=== PATIENT | male | born 1970 | race Caucasian/White ===

== ENCOUNTER 2017-12-24 17:07 | Inpatient (IN) | payer BC, OTHER ==
[~2017-12-24] VITALS: Ht 167.6 cm; Wt 59.0 kg
[2017-12-24] MEDS ORDERED: MIRALAX 17 GM POWD.PACK PO PRN (20:00)
[2017-12-24] MEDS ORDERED: ONDANSETRON 4 MG/2 ML VIAL IM PRN (20:00)
[2017-12-24] MEDS ORDERED: MAGNESIUM HYDROXIDE 30 ML LIQUID UDC PO PRN (20:00)
[2017-12-24] MEDS ORDERED: LOPERAMIDE HCL 2 MG CAPSULE PO PRN ×2 (20:00)
[2017-12-24] MEDS ORDERED: MAG HYDROX/AL HYDROX/SIMETH 30 ML LIQUID UDC PO PRN (20:00)
[2017-12-24] MEDS ORDERED: DICYCLOMINE HCL 20 MG TABLET PO PRN (20:00)
[2017-12-24] MEDS ORDERED: LORAZEPAM 1 MG TABLET PO PRN (20:00)
[2017-12-24 20:30] VITALS: BP 138/98
--- NOTE | 2017-12-24 20:30 | NUR ---
Pre-Assessment 2030 Patient was seen in intake office. Patient is noted to be cooperative with intake process but tremulous, avoids eye contact, slurred speech possibly due to intoxication, easily irritable, and anxious. Patient verbalizes history of seizures due to Alcohol withdrawal with last one noted to be 2 weeks ago. Vital signs rendered and noted as 98.4, 138/98, 99, 99%, 20, 0/10. Patient noted with home medication of Remeron. No Narcotic medications noted with patient. All questions answered. Admission assessment to continue on unit.
[2017-12-24] MEDS ORDERED: THIAMINE HCL 200 MG/2 ML VIAL IM ONE (21:00)
--- NOTE | 2017-12-24 21:00 | NUR ---
Admission Patient is a 47 year old male originally arriving from [facility], admitted to [facility] to receive medical treatment for his ETOH Dependence. Patient was escorted on to unit by male ELECTRIC BLANKET PACKER where body check was rendered. Skin check rendered by CN with skin noted intact. Patient is able to provide Urine drug screen upon arrival to unit. Patient is noted to be ambulatory with no assistance needed. Patient is alert and oriented, verbalizes No Known Allergies, Height noted as 5'6, and weight noted as 130lbs. Patient continues to be visibly anxious, restless, tremulous, avoids eye contact, slurred speech, and irritable. Vital signs rendered and noted to be 136/100, 96, 20, 98.4, 99%, 5/10. Patient verbalizes pain to abdomen and describes it as "it feels empty like I'm hungry but maybe im just nervous." Breathing is even and non labored with no signs of SOB. BUE and BLE noted to be WNL with no edema noted. Lung sounds clear with no cough noted. Patient verbalized past medical history of anxiety, depression, insomnia, Bipolar, and History of seizures, Patients home medication noted as Remeron 30mg QHS. Patient states "I take it because the tells me to take it. It doesnt make me sleepy. I actually dont feel anything. But I take it." Patient also explains "I dont like taking Benadryl for sleep because it does the opposite for me, so do Antihistamines. It makes me hyper. I will not take Trazodone or Seroquel. This is why I drink and smoke weed because it helps me sleep. Otherwise I have difficult times sleeping." Patient denies any suicidal ideations. He describes his usage as: 1. ETOH-Vodka, for the past year, drinking 2 pints daily, Last drink noted 12/24/17 at approx 1600 drinking 1 pint. 2. Klonopin (prescribed), for the past 5 years, 2 mg daily PO, 1mg in Am and 1mg HS, last dose 2 weeks ago due to patient unable to fill prescription. 3. Marijuana, patient reports of smoking Marijuana daily due to inability of sleeping. Unable to recall amounts and states "money is short right now so I get it when I can" Patient verbalizes signs and symptoms of withdrawal as "I get seizures, anxiety, nausea, vomiting. I just dont feel well." Patient explained he has been admitted to multiple treatment facilities due to his Alcohol dependence. His last noted admission was approx 1 year ago to a facility in [place] but patient is unable to recall the name of the facility. 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 Admission CIWA noted to be 17. All information reviewed with Dr. Turner. Labs to be rendered. PRN medications available for increased signs and symptoms. Will continue plan of care as ordered.
[2017-12-24 21:01] VITALS: BP 136/100
[2017-12-24 21:19] LABS: *AMPHETAMINE, URINE NEGATIVE (NEGATIVE); *BARBITURATE, URINE NEGATIVE (NEGATIVE); *CANNABINOID, URINE POSITIVE (NEGATIVE); *COCCAINE, URINE NEGATIVE (NEGATIVE); *OPIATE, URINE NEGATIVE (NEGATIVE); *PHENCYCLIDINE SCREEN,URINE NEGATIVE (NEGATIVE)
[2017-12-24] MEDS: LORAZEPAM 1 MG TABLET PO PRN (21:28)
--- NOTE | 2017-12-24 21:30 | NUR ---
PRN Medication Administration Patient is noted with increased agitation, anxiety, tremulous, and light sensitivity. Patient is also noted with elevated blood pressure of 138/100. PRN Clonidine and PRN Ativan 2mg administered as per orders. Will continue to monitor.
[2017-12-24] MEDS: CLONIDINE HCL 0.1 MG TABLET PO PRN (21:35)
[2017-12-24] MEDS ORDERED: MIRT30TA PO (21:58)
--- NOTE | 2017-12-24 22:30 | NUR ---
PRN medication Reassessment Patient is noted in his room, awake, alert and oriented. Patient is able to make needs known. Breathing even and non labored. Patient is able to verbalize "Im feeling better but still nervous." MD on unit to examine and evaluate patient with an addition dose of Ativan 2mg to be given. Will continue to monitor.
[2017-12-24] MEDS ORDERED: LORAZEPAM 1 MG TABLET ONE (22:48)
[2017-12-24 22:52] LABS: BASOPHILS % (AUTO) 1.2 % (0.0-2.0); HEMATOCRIT 40.4 % (36.7-47.1); HEMOGLOBIN 14.1 g/dL (12.5-16.3); LYMPHOCYTES # (AUTO) 1.2 K/uL (20.0-40.0); LYMPHOCYTES % (AUTO) 35.9 % (20.5-51.5); MEAN CORPUSCULAR HEMOGLOBIN 34.6 uug (23.8-33.4); MEAN CORPUSCULAR HGB CONC 35 g/dL (32.5-36.3); MEAN CORPUSCULAR VOLUME 98.9 fL (73.0-96.2); MONOCYTES # (AUTO) 0.2 K/uL (2.0-10.0); MONOCYTES % (AUTO) 5.1 % (0.0-11.0); NEUTROPHILS # (AUTO) 1.9 K/uL (1.8-8.9); NEUTROPHILS % (AUTO) 57.8 % (38.5-71.5); PLATELET COUNT (AUTO) 151 K/uL (152-348); RED BLOOD CELL COUNT(AUTO) 4.09 MIL/uL (4.06-5.63); WHITE BLOOD COUNT (AUTO) 3.3 K/uL (3.6-10.2)
[2017-12-24] MEDS ORDERED: LORAZEPAM 1 MG TABLET PO SCH (23:00)
[2017-12-24 23:05] LABS: BILIRUBIN,TOTAL 0.8 mg/dL (0.2-1.0); CREATININE 1.1 mg/dL (0.6-1.3); MAGNESIUM 1.7 mg/dL (1.8-2.4); POTASSIUM 3.3 mmol/L (3.5-5.1); TOTAL PROTEIN, SERUM 7.6 g/dL (6.4-8.2)
[2017-12-24 23:09] VITALS: BP 136/98
[2017-12-24] MEDS ORDERED: MAGNESIUM OXIDE 400 MG TABLET PO ONE (23:15)
[2017-12-24] MEDS ORDERED: POTASSIUM CHLORIDE 20 MEQ TAB.PRT.SR PO ONE (23:15)
--- NOTE | 2017-12-24 23:20 | NUR ---
MD Communication/Labs Results Patients lab resulted and relayed to MD with new orders for Potassium 40meq x1 dose now and Mag ox 400mg x1 dose now. Orders noted and carried out by CN. Potassium and Mag Ox administered with addition dose of Ativan 2mg as ordered. Will continue to monitor.
[2017-12-24] MEDS ORDERED: POTASSIUM CHLORIDE 20 MEQ TAB.PRT.SR ONE (23:32)
[2017-12-24] MEDS ORDERED: MAGNESIUM OXIDE 400 MG TABLET ONE (23:33)
[2017-12-25 00:43] VITALS: BP 118/87
[2017-12-25 04:00] VITALS: BP 98/57
--- NOTE | 2017-12-25 07:07 | NUR ---
End of Shift Patient is noted in bed sleeping. Breathing even and non labored. No signs of pain or discomfort noted. No restlessness noted. Patient is set to start a modified Ativan taper for his ETOH Dependence. Patient received PRN Ativan 2mg for elevated CIWA, PRN clonidine for elevated blood pressure, as well as an additional one time dose of Ativan 2mg after being evaluated by MD. All medications noted to be effective. Last noted CIWA 7. Patient received supplements for abnormal Potassium lab value and abnormal Magnesium lab value with Kdur 40meq x1 dose and Mag Ox 400mg x1 dose. Patient slept a total of 6 hours. All needs attended to promptly. Will endorse to continue plan of care as ordered.
--- NOTE | 2017-12-25 07:30 | NUR ---
START OF SHIFT Pt 47 y/o male admitted for etoh dependence. Pt received in room on bed awake. Pt alert and oriented to name, place, and time. Perrla. Skin warm and moist to touch. Respirations even and unlabored. Bilateral hand tremors noted. Pt appears anxious this morning. It was reported that pt slept for 6 hours last night. Bed on lowest position with side rails x2 up for safety. Call light within reach. No distress noted at this time.
[2017-12-25 08:00] VITALS: BP 110/79
[2017-12-25] MEDS: LORAZEPAM 1 MG TABLET PO SCH ×4 (08:20→21:09)
[2017-12-25] MEDS: THIAMINE HCL 100 MG TABLET PO SCH (08:20)
[2017-12-25] MEDS: MULTIVITAMINS,THERAPEUTIC TABLET PO SCH (08:20)
[2017-12-25] MEDS: FOLIC ACID 1 MG TABLET PO SCH (08:20)
[2017-12-25] MEDS ORDERED: TUBERCULIN,PURIF.PROT.DERIV. 5 TU/0.1 ML TEST ID ONE (09:00)
[2017-12-25] MEDS: LORAZEPAM 1 MG TABLET PO PRN ×2 (11:09→23:41)
[2017-12-25] MEDS: ONDANSETRON ODT 4 MG TAB.RAPDIS SL PRN (11:11)
--- NOTE | 2017-12-25 11:16 | NUR ---
PRN pt with 1 episode of reported loose stool. Immodium 1st dose po prn per MD order given and tolerated well.
--- NOTE | 2017-12-25 11:18 | NUR ---
PRN pt with ciwa=9. Bilateral hand tremors noted. Ativan po prn per MD order given and tolerated well.
--- NOTE | 2017-12-25 11:18 | NUR ---
PRN Pt states feels nauseated. Zofran odt prn per MD order given and tolerated well.
--- NOTE | 2017-12-25 12:16 | NUR ---
PRN EVAL pt with no reports of loose stool at this time.
[2017-12-25 12:17] VITALS: BP 112/86
--- NOTE | 2017-12-25 12:18 | NUR ---
PRN EVAL Pt with no reports of nausea/ vomit at this time.
--- NOTE | 2017-12-25 12:18 | NUR ---
PRN EVAL Pt with ciwa=5.
[2017-12-25] MEDS ORDERED: PANTOPRAZOLE SODIUM 40 MG TABLET.DR PO SCH (13:00)
[2017-12-25] MEDS ORDERED: MAGNESIUM OXIDE 400 MG TABLET PO ONE (15:00)
[2017-12-25 16:00] VITALS: BP 107/73
--- NOTE | 2017-12-25 18:25 | NUR ---
END OF SHIFT Pt 47 y/o female admitted for etoh dependence. Pt alert and oriented to name, place, and time. Perrla. Skin warm and slightly moist to touch. Respirations even and unlabored. Bilateral hand tremors noted. Pt with periods of anxiety throughout the day. Pt observed mostly isolative to room throughout the day. Pt was seen by MD today. Pt medication compliant a tolerated well. No ASE noted. Bed on lowest position with side rails x2 up for safety. Call light within reach. No distress noted at this time.
--- NOTE | 2017-12-25 19:15 | NUR ---
START OF SHIFT Received 47 year old male patient admitted on 12/24/17 for ETOH (vodka), Klonopin and Marijuana dependency. Pt is full code with NKA. He reports a PMHx of anxiety, depression, bipolar, insomnia and history of seizure 2 weeks ago. He reports drinking vodka 2-3 pints daily for 1 year. Last dose was 1 pint on 12/24/17. Klonopin 2 mg daily for 5 years. Last dose was 2 weeks ago, and intermittent use of Marijuana. Pt placed on 5 day Ativan taper and tolerating well. Per endorsement, pt received one time Ativan 1 mg. Pt is alert and oriented x4, breathing is even and unlabored. Safety measures in place. Will continue to monitor.
[2017-12-25 20:00] VITALS: BP 130/82
[2017-12-25] MEDS: MIRTAZAPINE 15 MG TABLET PO SCH (21:08)
[2017-12-25] MEDS: ACETAMINOPHEN 325 MG TABLET PO PRN (21:08)
--- NOTE | 2017-12-25 21:08 | NUR ---
PRN TYLENOL Pt complains of headache 5/10. PRN Tylenol administered as ordered. Will monitor effectiveness.
[2017-12-25] MEDS: diphenhydrAMINE 50 MG CAPSULE PO PRN (23:40)
[2017-12-25] MEDS: CLONIDINE HCL 0.1 MG TABLET PO PRN (23:40)
--- NOTE | 2017-12-25 23:40 | NUR ---
PRN ATIVAN, BENADRYL, CLONIDINE Pt complains of anxiety, agitation, and insomnia. Pt also noted with increased BP 143/90, HR: 105. CIWA:7. PRN Ativan, Benadryl and Clonidine administered as ordered. Safety measures in place. Will monitor effectiveness.
[2017-12-26] VITALS: BP 143/90
[2017-12-26 00:40] VITALS: BP 138/82
--- NOTE | 2017-12-26 00:40 | NUR ---
PRN REASSESSMENT PRN medications effective. Pt lying in bed with eyes closed noted to be asleep. Breathing even and unlabored, respirations 16. BP: 138/82. Will continue to monitor.
--- NOTE | 2017-12-26 04:00 | NUR ---
VITALS REFUSED, CIWA DEFERRED 0400 vitals refused. CIWA deferred d/t pt lying in bed with eyes closed noted to be asleep. Breathing even and unlabored. Safety measures in place. Will continue to monitor.
[2017-12-26] MEDS: PANTOPRAZOLE SODIUM 40 MG TABLET.DR PO SCH (06:56)
--- NOTE | 2017-12-26 07:10 | NUR ---
END OF SHIFT Pt is a 47 year old male patient admitted on 12/24/17 for ETOH (vodka), Klonopin and Marijuana dependency. Pt is full code with NKA. Pt continues on a 5 day Ativan taper and tolerating well. He received PRN Tylenol, Ativan, Benadryl and Clonidine. He slept a total of 7 hrs, Intake: 2,315, Void: x7, BM:0, CIWA:7. Pt remains alert and oriented x4, breathing is even and unlabored. Safety measures in place. Endorsed to AM shift.
--- NOTE | 2017-12-26 07:30 | NUR ---
START OF SHIFT Pt 47 y/o male admitted for etoh dependence. Pt received in room on bed awake. Pt alert and oriented to name, place, and time. Perrla. Skin warm and moist to touch. Respirations even and unlabored. Bilateral hand tremors noted. It was reported that pt slept for 7 hours last night. Bed on lowest position with side rails x2 up for safety. Call light within reach. No distress noted at this time.
[2017-12-26 08:00] VITALS: BP 113/85
[2017-12-26] MEDS: MULTIVITAMINS,THERAPEUTIC TABLET PO SCH (08:37)
[2017-12-26] MEDS: LORAZEPAM 1 MG TABLET PO SCH ×3 (08:37→21:27)
[2017-12-26] MEDS: FOLIC ACID 1 MG TABLET PO SCH (08:37)
[2017-12-26] MEDS: THIAMINE HCL 100 MG TABLET PO SCH (08:37)
[2017-12-26 09:20] LABS: EOSINOPHILS % (AUTO) 0.8 % (0.0-7.0); HEMATOCRIT 39.5 % (36.7-47.1); HEMOGLOBIN 13.6 g/dL (12.5-16.3); LYMPHOCYTES # (AUTO) 1.4 K/uL (20.0-40.0); MEAN CORPUSCULAR HEMOGLOBIN 34.5 uug (23.8-33.4); MEAN CORPUSCULAR HGB CONC 34 g/dL (32.5-36.3); MEAN CORPUSCULAR VOLUME 100.1 fL (73.0-96.2); MONOCYTES # (AUTO) 0.3 K/uL (2.0-10.0); MONOCYTES % (AUTO) 9.8 % (0.0-11.0); NEUTROPHILS # (AUTO) 1.3 K/uL (1.8-8.9); NEUTROPHILS % (AUTO) 42.4 % (38.5-71.5); PLATELET COUNT (AUTO) 119 K/uL (152-348); RED BLOOD CELL COUNT(AUTO) 3.94 MIL/uL (4.06-5.63)
[2017-12-26 09:42] LABS: BILIRUBIN,DIRECT 0.3 mg/dL (0.0-0.2); BILIRUBIN,TOTAL 1.2 mg/dL (0.2-1.0); CREATININE 1.1 mg/dL (0.6-1.3); MAGNESIUM 1.8 mg/dL (1.8-2.4); PHOSPHOROUS 3.9 mg/dL (2.5-4.9); POTASSIUM 3.5 mmol/L (3.5-5.1); TOTAL PROTEIN, SERUM 7.1 g/dL (6.4-8.2)
[2017-12-26 11:07] LABS: HEPATITIS B SURFACE AG Negative (Negative)
[2017-12-26 12:00] VITALS: BP 113/85
[2017-12-26] MEDS: BACLOFEN 20 MG TABLET PO PRN (14:04)
--- NOTE | 2017-12-26 14:05 | NUR ---
PRN Pt states has muscle aches of bilateral feet. Baclofen po prn per MD order given and tolerated well.
--- NOTE | 2017-12-26 15:05 | NUR ---
PRN EVAL Pt states body aches 02/08
[2017-12-26 16:00] VITALS: BP 129/88
--- NOTE | 2017-12-26 18:34 | NUR ---
END OF SHIFT Pt 47 y/o female admitted for etoh dependence. Pt alert and oriented to name, place, and time. Perrla. Skin warm and slightly moist to touch. Respirations even and unlabored. Bilateral hand tremors noted slightly. Pt with some periods of anxiety this morning. Pt observed mostly isolative to room throughout the day. Pt was seen by MD today. Pt medication compliant a tolerated well. No ASE noted. Bed on lowest position with side rails x2 up for safety. Call light within reach. No distress noted at this time.
--- NOTE | 2017-12-26 19:15 | NUR ---
START OF SHIFT Received 47 year old male patient admitted on 12/24/17 for ETOH (vodka), Klonopin and Marijuana dependency. Pt is full code with NKA. He reports a PMHx of anxiety, depression, bipolar, insomnia and history of seizure 2 weeks ago. He reports drinking vodka 2-3 pints daily for 1 year. Last dose was 1 pint on 12/24/17. Klonopin 2 mg daily for 5 years. Last dose was 2 weeks ago, and intermittent use of Marijuana. Pt is receiving a 5 day Ativan taper and tolerating well. Per endorsement, pt received PRN Baclofen. Pt is alert and oriented x4, breathing is even and unlabored. Safety measures in place. Will continue to monitor.
[2017-12-26 20:00] VITALS: BP 114/85
[2017-12-26] MEDS: MIRTAZAPINE 15 MG TABLET PO SCH (21:26)
[2017-12-26] MEDS: CLONIDINE HCL 0.1 MG TABLET PO SCH (21:28)
[2017-12-27] VITALS: BP 108/70
[2017-12-27] MEDS: BACLOFEN 20 MG TABLET PO PRN (02:39)
[2017-12-27] MEDS: diphenhydrAMINE 50 MG CAPSULE PO PRN (02:39)
--- NOTE | 2017-12-27 02:39 | NUR ---
PRN BENADRYL/BACLOFEN Pt complains of muscle spasms and insomnia. PRN Benadryl and Baclofen administered as ordered. Safety measures in place. Will continue to monitor effectiveness.
--- NOTE | 2017-12-27 03:39 | NUR ---
PRN REASSESSMENT PRN medications effective. Pt lying in bed with eyes closed noted to be asleep. Breathing even and unlabored. Safety measures in place. Will continue to monitor.
[2017-12-27] MEDS: PANTOPRAZOLE SODIUM 40 MG TABLET.DR PO SCH (06:55)
--- NOTE | 2017-12-27 07:15 | NUR ---
END OF SHIFT Pt is in bed awake, alert and oriented x4. Pt continues on a 5 day Ativan taper and tolerating well. He received PRN Baclofen and Benadryl d/t complaints of insomnia and muscle spasms. Pt was restless throughout the night. He slept a total of 4 hrs, Intake: 1000mL, Void: x2, BM:0, CIWA:5. Safety measures in place. Endorsed to AM shift.
--- NOTE | 2017-12-27 07:16 | NUR ---
Start of Shift Advertising Supervisor received report on 47 year old male admitted to [facility] on 12/24/17 for ETOH and Benzodiazepine detoxification. Pt reports NKDA, full code and regular diet. PMH of anxiety, depression, Bipolar and insomnia. Pt endorses seizure history with last seizure 2 weeks ago. Pt was provided Bentyl and Baclofen PRN on NOC. Pt currently on a Ativan taper and tolerating well. Last CIWA 5 recorded by NOC. Advertising Supervisor encounters pt in hallway. Pt is A/O x4 and makes his needs known. Calm, cooperative, bright and pleasant. Full range of emotions. Bed in low position, wheels locked and side rails up x2. Will continue to monitor, support and encourage according to plan of care.
[2017-12-27 08:15] VITALS: BP 111/81
[2017-12-27] MEDS: LORAZEPAM 1 MG TABLET PO SCH ×2 (09:28→12:44)
[2017-12-27] MEDS: MULTIVITAMINS,THERAPEUTIC TABLET PO SCH (09:29)
[2017-12-27] MEDS: CLONIDINE HCL 0.1 MG TABLET PO SCH ×2 (09:29→21:52)
[2017-12-27] MEDS: THIAMINE HCL 100 MG TABLET PO SCH (09:29)
[2017-12-27] MEDS: FOLIC ACID 1 MG TABLET PO SCH (09:29)
[2017-12-27 12:18] VITALS: BP 126/84
[2017-12-27 16:45] VITALS: BP 118/85
[2017-12-27] MEDS ORDERED: LORAZEPAM 1 MG TABLET PO SCH ×2 (17:00→21:00)
[2017-12-27] MEDS: ACETAMINOPHEN 325 MG TABLET PO PRN (17:05)
--- NOTE | 2017-12-27 17:05 | NUR ---
PRN Tylenol Pt complain of headache 5/10, pt endorses having drank plenty of water. Calcine Furnace Loader administered medication per order with pt tolerating well. Will continue to monitor, support and encourage according to plan of care.
--- NOTE | 2017-12-27 18:05 | NUR ---
PRN Re-Assessment Pt states the medication was effective and he feels better. Will continue to monitor, support and encourage according to plan of care.
--- NOTE | 2017-12-27 18:56 | NUR ---
End of Shift Water Pump Assembler provided report on 47 year old male admitted to [facility] on 12/24/17 for ETOH and Benzodiazepine detoxification. Pt reports NKDA, full code and regular diet. PMH of anxiety, depression, Bipolar and insomnia. Pt endorses seizure history with last seizure 2 weeks ago. Pt was administered Tylenol at 1700 for headache 5/10, pt reported the medication was effective. Pt currently on a Ativan taper and tolerating well. Last CIWA 5 recorded at 1600. Pt has been isolative and withdrawn to room and self, although polite and pleasant with staff. Flat affect with a congruent mood. Calm and cooperative, makes needs known. Bed in low position, wheels locked and side rails up x2. Will continue to monitor, support and encourage according to plan of care.
--- NOTE | 2017-12-27 19:10 | NUR ---
Start of Shift Patient Received. Patient is in activities room participating in a group meeting. Patient continues on a modified Ativan taper. Per endorsement, Patient was given PRN Tylenol for headache with medication noted to be effective. Last noted CIWA 5. Patient is compliant with participating in group and social activities. All needs attended to promptly. Will continue plan of care as ordered.
[2017-12-27 20:20] VITALS: BP 114/79
[2017-12-27] MEDS: MIRTAZAPINE 15 MG TABLET PO SCH (21:52)
--- NOTE | 2017-12-28 | NUR ---
VITALS REFUSED, CIWA DEFERRED Patient refused midnight vital signs. CIWA deferred due to patient asleep. Respirations are even and unlabored, 16/min. Safety measures in place, bed locked in low position, side rails up x2, call light within reach. Will continue to monitor.
[2017-12-28 00:30] VITALS: BP 109/63
[2017-12-28 04:18] VITALS: BP 107/65
[2017-12-28] MEDS: PANTOPRAZOLE SODIUM 40 MG TABLET.DR PO SCH (06:26)
--- NOTE | 2017-12-28 07:03 | NUR ---
End of Shift Patient is noted in bed sleeping. Breathing even and non labored. No signs of restlessness of discomfort noted. Patient continues on a modified Ativan taper. No PRN medications administered. Last noted CIWA 5. Patient is compliant with participating in group and social activities. All needs attended to promptly. Will endorse to continue plan of care as ordered.
[2017-12-28 07:05] LABS: BASOPHILS % (AUTO) 0.7 % (0.0-2.0); EOSINOPHILS # (AUTO) 0.1 K/uL (0.0-0.7); EOSINOPHILS % (AUTO) 1.9 % (0.0-7.0); HEMATOCRIT 36.8 % (36.7-47.1); HEMOGLOBIN 12.8 g/dL (12.5-16.3); LYMPHOCYTES # (AUTO) 1.1 K/uL (20.0-40.0); LYMPHOCYTES % (AUTO) 33.5 % (20.5-51.5); MEAN CORPUSCULAR HEMOGLOBIN 34.4 uug (23.8-33.4); MEAN CORPUSCULAR HGB CONC 35 g/dL (32.5-36.3); MEAN CORPUSCULAR VOLUME 98.6 fL (73.0-96.2); MONOCYTES # (AUTO) 0.2 K/uL (2.0-10.0); MONOCYTES % (AUTO) 6.5 % (0.0-11.0); NEUTROPHILS % (AUTO) 57.4 % (38.5-71.5); PLATELET COUNT (AUTO) 105 K/uL (152-348); RED BLOOD CELL COUNT(AUTO) 3.74 MIL/uL (4.06-5.63); WHITE BLOOD COUNT (AUTO) 3.4 K/uL (3.6-10.2)
--- NOTE | 2017-12-28 07:10 | NUR ---
START OF SHIFT report received from night nurse: Pt 47 y/o male admitted for etoh withdrawal. Pt received in room on bed awake. Pt alert and oriented to name, place, and time. Respirations even and unlabored. Last CIWA 5. It was reported that pt slept for 8 hours last night. No PRN medication required or requested on PM shift. Bed on lowest position with side rails x2 up for safety. Call light within reach. No distress noted at this time. Follow MD plan of care.
[2017-12-28 08:00] VITALS: BP 116/90
[2017-12-28] MEDS: FOLIC ACID 1 MG TABLET PO SCH (08:47)
[2017-12-28] MEDS: MULTIVITAMINS,THERAPEUTIC TABLET PO SCH (08:47)
[2017-12-28] MEDS: THIAMINE HCL 100 MG TABLET PO SCH (08:47)
[2017-12-28] MEDS: CLONIDINE HCL 0.1 MG TABLET PO SCH ×2 (09:00→21:50)
[2017-12-28] MEDS ORDERED: LORAZEPAM 1 MG TABLET PO SCH (09:00)
[2017-12-28 09:06] LABS: BILIRUBIN,DIRECT 0.2 mg/dL (0.0-0.2); BILIRUBIN,TOTAL 0.7 mg/dL (0.2-1.0); MAGNESIUM 1.7 mg/dL (1.8-2.4); POTASSIUM 4.2 mmol/L (3.5-5.1); TOTAL PROTEIN, SERUM 6.7 g/dL (6.4-8.2)
[2017-12-28] MEDS: IBUPROFEN 400 MG TABLET PO PRN (09:47)
[2017-12-28] MEDS: ACETAMINOPHEN 325 MG TABLET PO PRN (09:47)
--- NOTE | 2017-12-28 09:47 | NUR ---
PRN TYLENOL AND MOTRIN 650 MG TYLENOL PO AND 400MG PO MOTRIN GIVEN FOR HEADACHE PAIN 05/11, WILL REASSESS
--- NOTE | 2017-12-28 10:47 | NUR ---
PRN REASSESS PATIENT STATES THAT HIS HEADACHE IS GONE ( 0/10 PAIN )1 HOUR AFTER TAKING MOTRIN 400MG PO AND TYLENOL 650 MG PO, WILL CONTINUE TO MONITOR.
[2017-12-28 12:00] VITALS: BP 137/85
[2017-12-28] MEDS: LORAZEPAM 1 MG TABLET PO SCH ×3 (13:29→21:50)
[2017-12-28 16:00] VITALS: BP 136/88
[2017-12-28] MEDS ORDERED: MAGNESIUM OXIDE 400 MG TABLET PO ONE (17:00)
--- NOTE | 2017-12-28 19:07 | NUR ---
END OF SHIFT : Patient is a 47 y/o male admitted for Alcohol withdrawal with a history of anxiety, depression. Bipolar and insomnia. Patient has a history of seizures and the last one being 2 weeks ago. NKA, Full code and Regular diet. Patient is on modified Ativan taper ( this is day 4 ) and is compliant with medication plan and has attended group today. PRN tylenol 650mg po and Motrin 400mg po given @0947 for headache which was effective. Last CIWA 4 @ 1600. Bed on lowest position with side rails x2 up for safety. Call light within reach. No distress noted. Follow MD plan of care
--- NOTE | 2017-12-28 19:20 | NUR ---
START OF SHIFT Patient is a 47-year-old male admitted on 12/24/17 for ETOH dependence, with a history of Klonopin and Cannabis use. Patient is FULL code status, on a regular diet, with NKFA/NKDA. Patient has a past medical history of anxiety, depression, bipolar disorder, insomnia, and history of seizures. Patient is on fall and seizure precautions. Patient is currently on a modified Ativan taper, tolerating well. Upon assessment, patient is alert and oriented x4, skin dry and intact, verbalizing some anxiety about plans for the future. Safety measures in place, bed locked in low position, side rails up x2, call light within reach. Will continue to monitor.
[2017-12-28 20:00] VITALS: BP 122/95
[2017-12-28] MEDS: MIRTAZAPINE 15 MG TABLET PO SCH (21:50)
[2017-12-29] MEDS: diphenhydrAMINE 50 MG CAPSULE PO PRN (01:04)
[2017-12-29] MEDS: BACLOFEN 20 MG TABLET PO PRN (01:04)
--- NOTE | 2017-12-29 01:04 | NUR ---
PRN BACLOFEN AND BENADRYL Patient reports he woke up and was unable to fall back asleep. Patient reports mild muscle spasms. PRN Baclofen and Benadryl given PO. Safety measures in place, bed locked in low position, side rails up x2, call light within reach. Will reassess in one hour.
--- NOTE | 2017-12-29 02:04 | NUR ---
PRN BACLOFEN AND BENADRYL REASSESSMENT Patient is resting in bed with eyes closed, respirations even and unlabored. PRNs effective. Safety measures in place, bed locked in low position, side rails up x2, call light within reach. Will continue to monitor.
--- NOTE | 2017-12-29 04:00 | NUR ---
VITALS REFUSED, CIWA DEFERRED Patient refused 4AM vital signs. CIWA deferred due to patient asleep. Respirations are even and unlabored, 16/min. Safety measures in place, bed locked in low position, side rails up x2, call light within reach. Will continue to monitor.
--- NOTE | 2017-12-29 07:20 | NUR ---
END OF SHIFT Patient is a 47-year-old male admitted on 12/24/17 for ETOH dependence, with a history of Klonopin and Cannabis use. Patient is FULL code status, on a regular diet, with NKFA/NKDA. Patient has a past medical history of anxiety, depression, bipolar disorder, insomnia, and history of seizures. Patient is on fall and seizure precautions. Patient is currently on a modified Ativan taper, tolerating well. Patient slept for 6 hours, total intake 500 mL, void x1 , stool x . Patient received PRN Benadryl and Baclofen. Last CIWA was 6. Safety measures in place, bed locked in low position, side rails up x2, call light within reach. Will endorse to day shift.
--- NOTE | 2017-12-29 07:30 | NUR ---
start of shift note: recieved pt from date night caregiver nurse, pt is in stable condition no s/s of pain or discomfort, pt is admitted to [facility] for ETOH and Benzo withdrawal/dependence. pt's last ciwa 7, will continue to monitor pt for any changes. will continue to monitor pt for any changes.
[2017-12-29] MEDS: PANTOPRAZOLE SODIUM 40 MG TABLET.DR PO SCH (07:39)
[2017-12-29] MEDS: LORAZEPAM 1 MG TABLET PO SCH ×3 (08:19→21:55)
[2017-12-29] MEDS: THIAMINE HCL 100 MG TABLET PO SCH (08:19)
[2017-12-29] MEDS: CLONIDINE HCL 0.1 MG TABLET PO SCH ×2 (08:19→21:55)
[2017-12-29] MEDS: MULTIVITAMINS,THERAPEUTIC TABLET PO SCH (08:19)
[2017-12-29] MEDS: FOLIC ACID 1 MG TABLET PO SCH (08:19)
[2017-12-29 09:00] VITALS: BP 110/84
[2017-12-29] MEDS ORDERED: LORAZEPAM 1 MG TABLET PO SCH (09:00)
[2017-12-29] MEDS: DIVALPROEX 500 MG TABLET.DR PO SCH ×2 (10:51→21:55)
[2017-12-29 13:49] VITALS: BP 117/85
[2017-12-29] MEDS: IBUPROFEN 400 MG TABLET PO PRN ×2 (16:13→20:53)
--- NOTE | 2017-12-29 16:13 | NUR ---
prn motrin : pt with complaints of headache, pain level 7/10 will reassess effectiveness of medication
[2017-12-29 17:00] VITALS: BP 117/84
[2017-12-29] MEDS: ACETAMINOPHEN 325 MG TABLET PO PRN (17:54)
--- NOTE | 2017-12-29 17:54 | NUR ---
prn re-assessment: pt verbalized motrin was not effective he usually takes 600 mg of motrin, administered tylenol 650 mg for headache for pain level 6/10. board of directors nurse to re-assess
--- NOTE | 2017-12-29 18:52 | NUR ---
end of shift note: pt is in stable condition, pt was started on depakote for anti -seizures, pt received first dose without adverse reaction. pt without seizures throughout the shift. pt tolerated taper medications well. pt's last ciwa 7 is r/t agitation and anxiety after a phone call with his
--- NOTE | 2017-12-29 18:54 | NUR ---
PRN TYLENOL REASSESSMENT Pt reports headache 07/11, Tylenol ineffective. Encouraged non-pharmacological methods to relieve pain. Safety measures in place. Call light within reach. Will continue to monitor.
--- NOTE | 2017-12-29 18:54 | NUR ---
START OF SHIFT Pt is a 47 y/o male admitted on 12/24/17 for ETOH and benzo dependence. Pt is on a modified Ativan taper, tolerating well. Pts chief complaint during day shift was a persistent headache not relieved by PRN Motrin or Tylenol. Last CIWA 7 at 1600. Upon assessment pt presents with anxiety, agitation, restlessness, tremors, headache 8/10, flushed skin and flat affect. Respirations even and unlabored. Denies chest pain or SOB. Denies N/V/D. Medications due. Safety measures in place. Call light within reach. Will continue to monitor.
[2017-12-29 20:00] VITALS: BP 125/93
--- NOTE | 2017-12-29 20:53 | NUR ---
PRN MOTRIN ADMINISTRATION Pt reports headache 07/11. Pt states it is throbbing and presents with facial grimacing. Pt states his headache started after talking to his on the phone earlier. Safety measures in place. Call light within reach. Will continue to monitor.
--- NOTE | 2017-12-29 21:53 | NUR ---
PRN MOTRIN REASSESSMENT Pt reports his headache lowered to 3/10 and states it is now tolerable. Safety measures in place. Call light within reach. Will continue to monitor.
[2017-12-29] MEDS: MIRTAZAPINE 15 MG TABLET PO SCH (21:55)
--- NOTE | 2017-12-30 | NUR ---
GODFREY DEFERRED Pt laying in bed with eyes closed, CIWA deferred, to be assessed when pt is awake per orders. Respirations even and unlabored. Safety measures in place. Call light within reach. Will continue to monitor. Addendum: 12/30/17 at 0454 by TANA HARRIS RN vitals refused
--- NOTE | 2017-12-30 04:00 | NUR ---
CIWA DEFERRED AND VITALS REFUSED Pt laying in bed with eyes closed, CIWA deferred, to be assessed when pt is awake per orders. Vitals refused. Respirations even and unlabored. Safety measures in place. Call light within reach. Will continue to monitor.
[2017-12-30] MEDS: PANTOPRAZOLE SODIUM 40 MG TABLET.DR PO SCH (06:52)
--- NOTE | 2017-12-30 07:08 | NUR ---
END OF SHIFT Pt is a 47 y/o male admitted on 12/24/17 for ETOH and benzo dependence. Pt is on a modified Ativan taper, tolerating well. Pt presented with anxiety, agitation, restlessness, tremors, headache 8/10, flushed skin and flat affect. Scheduled medications and PRN Motrin administered, effective in S/S of withdrawal as verbalized by pt. Last CIWA 9 at 1999. Pt slept 6 hours. Intake 1000 ml, void x 9, stool x 0. Safety measures in place. Call light within reach. Will continue to monitor.
--- NOTE | 2017-12-30 07:30 | NUR ---
start of shift note: received pt from cage shift manager nurse, pt is in stable condition no s/s of pain or discomfort, pt tolerated taper medications throughout the night well. pt is admitted to [facility] for etoh/benzo withdrawal/dependence. will continue to monitor pt for any changes and will continue to meet pts needs
[2017-12-30 09:00] VITALS: BP 126/95
[2017-12-30] MEDS ORDERED: LORAZEPAM 1 MG TABLET PO SCH (09:00)
[2017-12-30] MEDS: MULTIVITAMINS,THERAPEUTIC TABLET PO SCH (09:04)
[2017-12-30] MEDS: FOLIC ACID 1 MG TABLET PO SCH (09:04)
[2017-12-30] MEDS: CLONIDINE HCL 0.1 MG TABLET PO SCH ×2 (09:04→21:54)
[2017-12-30] MEDS: THIAMINE HCL 100 MG TABLET PO SCH (09:04)
[2017-12-30] MEDS: DIVALPROEX 500 MG TABLET.DR PO SCH ×2 (09:04→21:54)
[2017-12-30] MEDS: IBUPROFEN 400 MG TABLET PO PRN (12:09)
[2017-12-30] MEDS: ACETAMINOPHEN 325 MG TABLET PO PRN (12:09)
--- NOTE | 2017-12-30 12:09 | NUR ---
PRN administration: pt with complaints of headache, pain scale 8/10 will re-assess effectiveness of medication
--- NOTE | 2017-12-30 13:00 | NUR ---
PRN re-assessment: pt verbalized motrin and tylenol were effective, pain level 0/10
[2017-12-30 15:35] VITALS: BP 116/77
[2017-12-30 17:44] VITALS: BP 121/88
[2017-12-30] MEDS ORDERED: DIPH50CA37 PO (18:44)
[2017-12-30] MEDS ORDERED: DIVA500T2 PO (18:44)
[2017-12-30] MEDS ORDERED: CLON0.1T14 PO (18:44)
[2017-12-30] MEDS ORDERED: DICY20TA28 PO (18:44)
[2017-12-30] MEDS ORDERED: PANT40TA2 PO (18:44)
--- NOTE | 2017-12-30 19:10 | NUR ---
end of shift note: pt is in stable condition no s/s of pain or discomfort. pt is admitted for benzo and etoh withdrawal/dependence. pt is set for discharge tomorrow, pts last ciwa 5 no s/s of seizure throughout the shift.
--- NOTE | 2017-12-30 19:30 | NUR ---
START OF SHIFT Pt is a 47 y/o male admitted on 12/24/17 for ETOH and benzo dependence. Pt finished a modified Ativan taper and is scheduled to be d/c tomorrow. Last CIWA 5 at 1600 and was administered PRN Motrin and Tylenol for headache. Upon assessment pt presents with anxiety, restlessness, tremors, flushed skin and flat affect. Respirations even and unlabored. Denies chest pain or SOB. Denies N/V/D. Medications due. Safety measures in place. Call light within reach. Will continue to monitor.
[2017-12-30 20:00] VITALS: BP 127/89
[2017-12-30] MEDS: MIRTAZAPINE 15 MG TABLET PO SCH (21:54)
[2017-12-30] MEDS: BACLOFEN 20 MG TABLET PO PRN (22:59)
[2017-12-30] MEDS: diphenhydrAMINE 50 MG CAPSULE PO PRN (22:59)
--- NOTE | 2017-12-30 22:59 | NUR ---
PRN BENADRYL AND BACLOFEN ADMINISTRATION Pt reports muscle spasms in back and requests sleep aid. Pt appears restless. Safety measures in place. Call light within reach. Will continue to monitor.
--- NOTE | 2017-12-30 23:59 | NUR ---
PRN BENADRYL AND BACLOFEN REASSESSMENT Pt laying in bed with eyes closed. Respirations even and unlabored. Safety measures in place. Call light within reach. Will continue to monitor.
[2017-12-31] MEDS: ONDANSETRON ODT 4 MG TAB.RAPDIS SL PRN (07:15)
[2017-12-31] MEDS: PANTOPRAZOLE SODIUM 40 MG TABLET.DR PO SCH (07:15)
[2017-12-31] MEDS: IBUPROFEN 400 MG TABLET PO PRN ×3 (07:15→21:53)
--- NOTE | 2017-12-31 07:15 | NUR ---
PRN MOTRIN AND ZOFRAN ODT ADMINISTRATION Pt reports pain in toe 4/10 d/t hitting toe by accident on edge of bed and nausea, no vomiting. Safety measures in place. Call light within reach. Reassessment endorsed to day shift nurse.
--- NOTE | 2017-12-31 07:26 | NUR ---
END OF SHIFT Pt is a 47 y/o male admitted on 12/24/17 for ETOH and benzo dependence. Pt finished a modified Ativan taper and is scheduled to be d/c today. Pt presented with anxiety, restlessness, tremors, difficulty sleeping, flushed skin and flat affect. Scheduled medications and PRN Baclofen, Benadryl, Motrin and Zofran odt administered. Last CIWA 5. Pt slept 4 hours intermittently. Intake 1500 ml, void x 4, stool x 0. Safety measures in place. Call light within reach. Pts needs have been met. Endorsed to day shift nurse.
--- NOTE | 2017-12-31 07:30 | NUR ---
Start of Shift Report from the night nurse: pt is a 47 y/o male here for Benzo r/t Klonopin 2mg daily for 5 yrs and Etoh r/t vodka 2 pints daily for 1 yr and marijuana occasionally; modified Ativan taper ordered. Pt is a full code, NKA, regular diet fall and seizure precautions ordered. HHx: Sz r/t etoh w/d 2 weeks befoer admission, multiple relapses, anxiety, depression, insomnia , bipolar. Skin is intact. V/S stable. Last CIWA 5. New order to be d/c'[d today. PRN Benadryl and baclofen given last night,Motrin and Zofran given this morning during the night shift manager; will reassess the effectiveness as endorsed. Pt is asleep in room. Will cont. to monitor the pt.
[2017-12-31 08:00] VITALS: BP 123/86
[2017-12-31] MEDS: THIAMINE HCL 100 MG TABLET PO SCH (08:44)
[2017-12-31] MEDS: BACLOFEN 20 MG TABLET PO PRN ×2 (08:44→21:53)
[2017-12-31] MEDS: MULTIVITAMINS,THERAPEUTIC TABLET PO SCH (08:44)
[2017-12-31] MEDS: FOLIC ACID 1 MG TABLET PO SCH (08:44)
[2017-12-31] MEDS: DIVALPROEX 500 MG TABLET.DR PO SCH ×2 (08:44→21:59)
[2017-12-31] MEDS: CLONIDINE HCL 0.1 MG TABLET PO SCH ×2 (08:45→21:54)
--- NOTE | 2017-12-31 08:45 | NUR ---
PRN Medication Administration Pt c/o muscle tremors and spams; PRN Baclofen given as ordered. Will reassess in 1H.
--- NOTE | 2017-12-31 09:45 | NUR ---
Reassessment Pt is in room relaxing in bed and states that his spasms have decreased, no tremors noted; Baclofen is effective. Will cont. to monitor the pt.
[2017-12-31] MEDS ORDERED: LORAZEPAM 1 MG TABLET PO SCH (10:15)
--- NOTE | 2017-12-31 10:40 | NUR ---
New Order-Ativan New order for pt not to be d/c'd to day and to given ativan 2mg PO once, given as ordered with CIWA 10. Will cont. to monitor the pt.
[2017-12-31 12:00] VITALS: BP 111/80
--- NOTE | 2017-12-31 14:30 | NUR ---
PRN Medication Administration Pt c/o WELLS 4/10 pain; PRN Motrin 400mg given as ordered. Will reassess in 1H.
--- NOTE | 2017-12-31 15:30 | NUR ---
Reassessment Pt is in room resting in bed and watching t.v., he denies WELLS; Motrin is effective. Will cont. to monitor the pt.
[2017-12-31 16:00] VITALS: BP 105/72
--- NOTE | 2017-12-31 17:35 | NUR ---
Nursing Note Pt's valproic acid level is 62. Dr. Gupta made aware.
--- NOTE | 2017-12-31 19:18 | NUR ---
End of Shift Report to the night nurse: pt is a 47 y/o male here for Benzo r/t Klonopin 2mg daily for 5 yrs and Etoh r/t vodka 2 pints daily for 1 yr and marijuana occasionally; modified Ativan taper ordered. Pt is a full code, NKA, regular diet fall and seizure precautions ordered. HHx: Sz r/t Etoh w/d 2 weeks before admission, multiple relapses, anxiety, depression, insomnia, bipolar. V/S stable. Skin is intact. Last BM today during my shift. PRN Motrin 400mg given for WELLS today. New Orders for the discharge tomorrow and was cx'd today. No hallucinations, delusions or suicidal ideations noted. Pt did not attend group therapy or activities today. Last CIWA 3.
--- NOTE | 2017-12-31 19:30 | NUR ---
START OF SHIFT Pt is a 47 y/o male admitted on 12/24/17 for ETOH and benzo dependence. Pt finished a modified Ativan taper, was scheduled to be d/c today but pt continued to have S/S of withdrawal in the morning and had one time order for Ativan 2 mg at 1040 which was effective. Pt is scheduled to be d/c tomorrow. Last CIWA 3 at 1600 and was administered PRN Baclofen and Motrin during day shift. Valproic acid WNL. Upon assessment pt presents with anxiety, restlessness, tremors, intermittent sweats and flat affect. Respirations even and unlabored. Denies chest pain or SOB. Denies N/V/D. Medications due. Safety measures in place. Call light within reach. Will continue to monitor.
[2017-12-31 20:00] VITALS: BP 108/72
[2017-12-31] MEDS: MIRTAZAPINE 15 MG TABLET PO SCH (21:53)
--- NOTE | 2017-12-31 21:53 | NUR ---
PRN BACLOFEN AND MOTRIN ADMINISTRATION Pt reports muscle spasms and complains of pain in right knee r/t osteoarthritis per pt. Safety measures in place. Call light within reach. Will continue to monitor.
--- NOTE | 2017-12-31 22:53 | NUR ---
PRN BACLOFEN AND MOTRIN REASSESSMENT Pt reports not having muscle spasms, Baclofen effective. Pt reports pain 2/10 in right knee, Motrin effective. Safety measures in place. Call light within reach. Will continue to monitor.
[2018-01-01] VITALS: BP 118/70
[2018-01-01] MEDS: PANTOPRAZOLE SODIUM 40 MG TABLET.DR PO SCH (07:08)
--- NOTE | 2018-01-01 07:15 | NUR ---
END OF SHIFT Pt is a 47 y/o male admitted on 12/24/17 for ETOH and benzo dependence. Pt was scheduled to be d/c yesterday but got a one day extension. Pt had last dose of Ativan yesterday morning d/t continued withdrawal symptoms and is scheduled to be d/c today. Pt presented with anxiety, restlessness, muscle spasms, pain in right knee, tremors, intermittent sweats and flat affect. Scheduled medications and PRN Baclofen and Motrin administered, effective in S/S of withdrawal AEB CIWA 5 lowered to 3 during shift. Pt slept 6 hours. Intake 1500 ml, void x 8, stool x 0. Safety measures in place. Call light within reach. Pts needs have been met. Endorsed to day shift nurse.
--- NOTE | 2018-01-01 07:39 | NUR ---
START OF SHIFT RECEIVED PT A/O X4, RESPIRATIONS EVEN AND UNLABORED. PT REPORTS NO S/S OF W/D EXCEPT HAVING MILD TREMORS. PT IS TO BE DISCHARGED TODAY. PT STATES HE FEELS READY TO LEAVE DETOX AND CONTINUE TX. SIDE RAILS UPX2, BED IS IN LOWEST POSITION. CALL LIGHT IS WITHIN REACH. ALL SAFETY MEASURES IN PLACE. WILL CONTINUE TO MONITOR.
[2018-01-01 08:00] VITALS: BP 127/84
[2018-01-01] MEDS: DIVALPROEX 500 MG TABLET.DR PO SCH (08:20)
[2018-01-01 08:21] VITALS: BP 127/84
[2018-01-01] MEDS: THIAMINE HCL 100 MG TABLET PO SCH (08:21)
[2018-01-01] MEDS: MULTIVITAMINS,THERAPEUTIC TABLET PO SCH (08:21)
[2018-01-01] MEDS: FOLIC ACID 1 MG TABLET PO SCH (08:21)
[2018-01-01] MEDS: CLONIDINE HCL 0.1 MG TABLET PO SCH (08:21)
--- NOTE | 2018-01-01 09:25 | NUR ---
DISCHARGE NOTE PT LEFT IN STABLE CONDITION, VVS. PT Addendum: 01/01/18 at 0939 by LEANNE GUZMAN RN PT LEFT THE BUILDING A/[facility], IN STABLE CONDITION, [facility]VS AT 0925, 01/01/18, WITH ALL BELONGINGS, MEDICATIONS, PRESCRIPTION AND DISCHARGE PAPERS. D/C PAPERWORK SIGNED AND COPIED, D/C INSTRUCTIONS GIVEN AND PT VERBALIZED UNDERSTANDING. PT WAS PICKED UP BY "[employer] [employer] [employer] AND IS BEING TAKEN TO [facility] BY THE [facility].
== END 2018-01-01 09:27 | disposition other institution (70) | DRG 895 ==
LOC: SRC 19:49
PROVIDERS: ADMIT Internal Medicine; ATTEND Internal Medicine
PROC: HZ2ZZZZ Detoxification Services for Substance Abuse Treatment (ICD-10-PCS; principal; 2017-12-24)
PROC: HZ41ZZZ Group Counseling for Substance Abuse Treatment, Behavioral (ICD-10-PCS; 2017-12-26)
PROC: HZ31ZZZ Individual Counseling for Substance Abuse Treatment, Behavioral (ICD-10-PCS; 2017-12-27)
DX: F10.232 Alcohol dependence with withdrawal with perceptual disturbance (principal); I15.9 Secondary hypertension, unspecified; K70.10 Alcoholic hepatitis without ascites; E83.42 Hypomagnesemia; F31.4 Bipolar disorder, current episode depressed, severe, without psychotic features; F17.210 Nicotine dependence, cigarettes, uncomplicated; F41.9 Anxiety disorder, unspecified; Y90.9 Presence of alcohol in blood, level not specified; Z81.1 Family history of alcohol abuse and dependence; G47.00 Insomnia, unspecified; F12.20 Cannabis dependence, uncomplicated; E87.6 Hypokalemia; F10.288 Alcohol dependence with other alcohol-induced disorder; D72.819 Decreased white blood cell count, unspecified; F13.90 Sedative, hypnotic, or anxiolytic use, unspecified, uncomplicated
CPT/HCPCS: 36415; 70030-TC; 80164; 80307; 80349; 82746; 83735; 84100; 85025; 86580; 86592; 86705; 86803; 87340; 87806; A4663; G0480; J3411; Q0162; Q0163

== ENCOUNTER 2018-06-11 00:04 | Inpatient (IN) | payer BC, OTHER ==
[~2018-06-11] VITALS: Ht 167.6 cm; Wt 68.0 kg
[~2018-06-11 00:04] MED LIST: CLON0.1T14 PO; DICY20TA28 PO; DIPH50CA37 PO; DIVA500T2 PO; MIRT30TA PO; PANT40TA2 PO
--- NOTE | 2018-06-12 | NUR ---
INTAKE ASSESSMENT BP:96/57, HR:81, RR:18, SpO2:95% on RA T:98.1 Pt is stable and able to be admitted on the unit. Pt is intoxicated and reports drinking 187mL bottle of vodka one hour prior to admission. Unit protocols regarding medications and vital signs Q4H were explained. Pt verbalized understanding. Will continue admission upon arrival on the unit.
[2018-06-12] MEDS ORDERED: THIAMINE HCL 200 MG/2 ML VIAL IM ONE (00:15)
[2018-06-12] MEDS ORDERED: LORAZEPAM 2 MG/1 ML VIAL IM PRN (00:15)
[2018-06-12] MEDS ORDERED: diphenhydrAMINE 50 MG CAPSULE PO PRN (00:15)
[2018-06-12] MEDS ORDERED: METHOCARBAMOL 750 MG TABLET PO PRN (00:15)
[2018-06-12] MEDS ORDERED: MAG HYDROX/AL HYDROX/SIMETH 30 ML LIQUID UDC PO PRN (00:15)
[2018-06-12] MEDS ORDERED: MIRALAX 17 GM POWD.PACK PO PRN (00:15)
[2018-06-12] MEDS ORDERED: MAGNESIUM HYDROXIDE 30 ML LIQUID UDC PO PRN (00:15)
[2018-06-12] MEDS ORDERED: HYDROXYZINE PAMOATE 25 MG CAPSULE PO PRN (00:15)
[2018-06-12] MEDS ORDERED: ONDANSETRON 4 MG/2 ML VIAL IM PRN (00:15)
[2018-06-12] MEDS ORDERED: LOPERAMIDE HCL 2 MG CAPSULE PO PRN ×2 (00:15)
[2018-06-12] MEDS ORDERED: DICYCLOMINE HCL 20 MG TABLET PO PRN (00:15)
[2018-06-12] MEDS ORDERED: LORAZEPAM 1 MG TABLET PO PRN (00:15)
[2018-06-12] MEDS ORDERED: BUPRENORPHINE HCL 2 MG TAB.SUBL SL PRN (00:15)
[2018-06-12] MEDS: ONDANSETRON ODT 4 MG TAB.RAPDIS SL PRN ×2 (00:31→08:50)
--- NOTE | 2018-06-12 00:31 | NUR ---
PRN ZOFRAN Pt complains of nausea. PRN Zofran administered as ordered. Safety measures in place. Will monitor effectiveness.
[2018-06-12 00:33] LABS: BASOPHILS # (AUTO) 0.1 K/uL (0.0-8.0); BASOPHILS % (AUTO) 2.1 % (0.0-2.0); EOSINOPHILS % (AUTO) 0.8 % (0.0-7.0); HEMATOCRIT 38.3 % (36.7-47.1); HEMOGLOBIN 13.1 g/dL (12.5-16.3); LYMPHOCYTES # (AUTO) 2.1 K/uL (20.0-40.0); MEAN CORPUSCULAR HEMOGLOBIN 33.3 uug (23.8-33.4); MEAN CORPUSCULAR HGB CONC 34 g/dL (32.5-36.3); MEAN CORPUSCULAR VOLUME 97.4 fL (73.0-96.2); MONOCYTES # (AUTO) 0.4 K/uL (2.0-10.0); NEUTROPHILS # (AUTO) 3.6 K/uL (1.8-8.9); NEUTROPHILS % (AUTO) 57.1 % (38.5-71.5); PLATELET COUNT (AUTO) 297 K/uL (152-348); RED BLOOD CELL COUNT(AUTO) 3.93 MIL/uL (4.06-5.63); WHITE BLOOD COUNT (AUTO) 6.2 K/uL (3.6-10.2)
--- NOTE | 2018-06-12 00:40 | NUR ---
1:1 Pt placed on 1:1 for safety/unsteady gait.
[2018-06-12 00:57] LABS: BILIRUBIN,TOTAL 0.2 mg/dL (0.2-1.0); CREATININE 0.9 mg/dL (0.6-1.3); MAGNESIUM 2.3 mg/dL (1.8-2.4); POTASSIUM 4.2 mmol/L (3.5-5.1); TOTAL PROTEIN, SERUM 7.4 g/dL (6.4-8.2)
--- NOTE | 2018-06-12 01:00 | NUR ---
PRN ZOFRAN REASSESSMENT Pt reports Zofran is somewhat effective. Pt states " It helped, but I still feel kind of nauseous." Will continue to monitor.
--- NOTE | 2018-06-12 01:00 | NUR ---
ADMISSION NOTE Pt is a 48 year old male admitted on 06/12/18 for ETOH, Opiate and Marijuana withdrawal. Pt arrived ambulatory from [facility] to the third floor accompanied by a EQUINE VET at 0018. Pt noted to be a poor historian and had difficulty concentrating during the interview. Pt stated " sorry, my mind is just scrambled right now" Pt noted to be intoxicated d/t recent ingestion of vodka one hour prior to admission. He complains of nausea and reports " I don't feel good." Pt is full code with NKA. He is a smoker and smokes 1 pack of cigarettes daily. He reports a PMHx of depression. He is unable to recall when he was diagnosed with depression but states " I take Remeron for depression and depakote as a mood stabilizer." He reports having a PCP but unable to recall their name. He reports a past history of withdrawal induced seizures. Pt states " I think I had a seizure last night. I fell asleep and woke up and I think I had one, no one was able to buy me alcohol last night." He denies suicidal ideations and denies a past history of 5150 hold. He brought in several home medications which have been reconciled. Pt reports he was here in December 2017 and reports going to [facility] for detox from 05/30-06/03. He states " I was able to stay sober after I left from here in December and I started drinking again in May." Pt also reports he was admitted to [facility] in May 2018 and was diagnosed with pancreatitis. " I was in so much pain, that's how I got started on the Carriere. I've been taking more than prescribed " He reports he wants to get sober because, " I want to be a normal person." He states his trigger for relapse is " my marriage" He states, " What happened at home made me mess up. But I don't want to get into it " He is able to verbalize insight and motivation to stay sober and he states " I just want to be a normal person, I was sober and I messed up." Pt denies having a support system. He states " I thought I had a good support system, but I don't" He describes his current use as: 1. ETOH (vodka) 3 pints daily for 3 weeks Last dose: 1/2 pint on 06/11/18 at 2300 2. Carriere (5 pills) 5/325 mg daily for 3 weeks. Last dose: 5 pills of 5/325 mg on 06/11/18 at 1800. 3. Marijuana " 1 bowl" smoking daily Last dose: " 1 bowl" on 06/11/18 at 1800. 4. Suboxone of unknown amount intermittently. 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 He appears to be disheveled, with dirty fingernails, slumped posture, restless behavior and smells of alcohol. He denies chest pain or SOB. PERRLA, breathing is even and unlabored, lung sounds clear. Abdomen is soft and non-distended. Bowel sounds present in all quadrants, last BM 06/11/18. Pt reports that BM is regular. Pt's skin is warm, dry and intact. MD aware of pt's admission. Pt oriented to room and unit. Safety measures in place. Will continue to monitor.
[2018-06-12 01:07] LABS: THYROID STIMULATING HORMONE 0.348 mIU/mL (0.358-3.740)
[2018-06-12] MEDS ORDERED: BUTA1CAP5 GT (01:12)
[2018-06-12] MEDS ORDERED: MELO-107 PO (01:12)
[2018-06-12] MEDS: LORAZEPAM 1 MG TABLET PO PRN ×2 (02:07→08:50)
--- NOTE | 2018-06-12 02:07 | NUR ---
PRN ATIVAN Pt complains of anxiety, fine tremors, sweats, and nausea. Pt appears flushed. Pt states " I'm starting to come down from the Alcohol, I'm starting to not feel right." CIWA:12. PRN Ativan 1 mg administered as ordered. Safety measures in place. Will monitor effectiveness.
[2018-06-12 02:31] LABS: *AMPHETAMINE, URINE NEGATIVE (NEGATIVE); *BARBITURATE, URINE NEGATIVE (NEGATIVE); *CANNABINOID, URINE POSITIVE (NEGATIVE); *COCCAINE, URINE NEGATIVE (NEGATIVE); *OPIATE, URINE POSITIVE (NEGATIVE); *PHENCYCLIDINE SCREEN,URINE NEGATIVE (NEGATIVE)
--- NOTE | 2018-06-12 03:07 | NUR ---
PRN ATIVAN REASSESSMENT PRN medication effective. Pt is lying in bed with eyes closed noted to be asleep. No facial grimacing noted. Breathing even and unlabored, safety measures in place. Will monitor.
[2018-06-12 04:00] VITALS: BP 102/65
--- NOTE | 2018-06-12 04:00 | NUR ---
CIWA/COWS DEFERRED 0400 COWS/CIWA deferred d/t pt is lying in bed with eyes closed noted to be asleep. Breathing is even and unlabored, safety measures in place. 1:1 at bedside. Will continue to monitor.
--- NOTE | 2018-06-12 07:07 | NUR ---
END OF SHIFT Pt is a 48 year old male admitted on 06/12/18 for ETOH, Opiate and Marijuana withdrawal. He remains alert and oriented x4. He complained of nausea, flushed face and fine tremors. At 0031 he received PRN Zofran and at 0207 he received PRN Ativan 1 mg for CIWA:12. He slept a total of 4 hrs, Intake: 300 mL, Void: x1, BM:0. COWS:8, CIWA:12 at 0200. He remains on a 1:1 for safety and unsteady gait. Breathing is even and unlabored, safety measures in place. Endorsed to AM shift.
--- NOTE | 2018-06-12 07:35 | NUR ---
BEGINNING OF SHIFT Patient endorsement report received from welder 2nd shift nurse, all pertinent information was discussed. Patient is a 48 year old male. admitting Dx: ETOH/Opiate withdrawal. Patient currently with no ongoing taper, continues under very close observation. Patient has PRN medications available for s/sx of withdrawal. Per welder 2nd shift patient with poor sleep during welder 2nd shift, slept for 4 hours. Received PRN:Zofran and Ativan, as per welder 2nd shift medications was effective. Patient with last cow score of: 8, and last ciwa score of: 12. Patient received with eyes closed, respirations are even and unlabored. Patient with 1: 1 sitter at bedside for safety precautions, patient responsive to verbal stimuli, will educate regarding plan of care for the day and medication regimen. will continue to monitor closely. safety measures are in place. call light with in reach.
[2018-06-12 08:45] VITALS: BP 103/73
[2018-06-12] MEDS: THIAMINE HCL 100 MG TABLET PO SCH (08:49)
[2018-06-12] MEDS: FOLIC ACID 1 MG TABLET PO SCH (08:50)
[2018-06-12] MEDS: MULTIVITAMINS,THERAPEUTIC TABLET PO SCH (08:50)
--- NOTE | 2018-06-12 08:50 | NUR ---
COW/CIWA ASSESSMENT;PRN ATIVAN & ZOFRAN Patient in bed, presented with labile mood, and anxious and depressed affect. Patient Noted disheveled with dirty fingernails. Encouraged patient maintenance of hygiene and personal space with good verbal understanding. During assessment patient exhibited the following s/sx: nausea, fine tremors, flushed, clammy skin, anxiety, guarded, fidgety, restlessness and agitation. Patient with ciwa score of: 15 and cow score of: 9. Patient currently with no ongoing taper, but has PRN medication available for s/sx of withdrawal. Patient was administered Ativan 1 Mg PO for CIWA Score of 15. Patient also administered PRN Zofran 4 mg SL for increase nausea. Will monitor effectiveness of medications. safety measures are in place. Will continue to monitor closely.
--- NOTE | 2018-06-12 09:20 | NUR ---
ZOFRAN REASSESSMENT Patient reports medication effective, decrease in nausea, no episodes of vomiting were noted, will continue to monitor closely. safety measures in place.
--- NOTE | 2018-06-12 09:50 | NUR ---
ATIVAN REASSESSMENT Medication effective, patient reports decrease in anxiety and agitation, current CIWA score of: 13. Will continue to monitor closely.
--- NOTE | 2018-06-12 10:57 | NUR ---
REASSESSMENT Upon admission patient denied any past medical history, but as per [facility] records, the Initial physical assessment conducted by Dr. Kenney Turner indicated patient with DX: Insomnia, bipolar d/o, anxiety and history of 5150.
[2018-06-12] MEDS ORDERED: 5 DAY TAPER VALIUM-SERENITY PROTOCOL PO PRN (12:30)
[2018-06-12] MEDS ORDERED: 3 DAY TAPER BUPRENORPHINE -SERENITY PROTOCOL SL PRN (12:30)
--- NOTE | 2018-06-12 12:52 | NUR ---
UDS + BENZODIAZEPINE Patient reports that he was given Librium approximately 10 doses in two days when he was hospitalized at [facility]. Patient denies taking any benzodiazepines aside from the doses he was given at the hospital.
[2018-06-12 12:58] VITALS: BP 111/70
[2018-06-12] MEDS: DIAZEPAM 10 MG TABLET PO SCH ×3 (13:01→20:12)
--- NOTE | 2018-06-12 13:12 | NUR ---
COW/CIWA ASSESSMENT; PRN SUBUTEX & IMODIUM Patient continues to exhibit the following s/sx of withdrawal: elevated heart rate, sweats, difficulty sitting still, fidgety, enlarged pupils, agitation, bone and joint aches, nasal congestion, diarrhea x1, nausea, tremors, anxiety, irritability. Patient with COW score of: 16 and CIWA score of:18. Patient was administered PRN: Subutex 4mg SL as ordered for COW score of: 16. Patient also received first dose of Valium taper. Administered Imodium 4mg as ordered for first bout of diarrhea. patient reported only one episode of diarrhea. Safety measures are in place. call light with in reach, will continue to monitor closely. Will monitor effectiveness of medications. Encouraged patient to increase PO fluid intake as tolerated.
--- NOTE | 2018-06-12 13:32 | NUR ---
SUBUTEX REASSESSMENT Medication effective, patient reports decrease in anxiety, and irritability. patient now with current cow score of: 14. Safety measures in place. will continue to monitor.
--- NOTE | 2018-06-12 14:12 | NUR ---
IMODIUM REASSESSMENT Medication effective, no further episodes of diarrhea have been noted, will continue to monitor closely.
[2018-06-12] MEDS: DIVALPROEX 500 MG TABLET.DR PO SCH ×2 (14:23→22:08)
--- NOTE | 2018-06-12 17:00 | NUR ---
COW/CIWA ASSESSMENT Patient continues to exhibit the following s/sx of withdrawal: elevated heart rate, sweats, difficulty sitting still, fidgety, enlarged pupils, agitation, bone and joint aches, nasal congestion, nausea, tremors, anxiety, irritability. Patient with COW score of: 12 and CIWA score of:18. Continues on Valium taper as ordered, and PRN subutex as ordered.
[2018-06-12 17:41] VITALS: BP 119/76
--- NOTE | 2018-06-12 18:51 | NUR ---
COMMUNICATION Patient with lipase level of 681, as per Dr. Mahan report lipase levels, unable to input order, orders was read back, verified noted and carried out.
--- NOTE | 2018-06-12 18:55 | NUR ---
END OF SHIFT Patient alert and oriented x4. Patient with admitting Dx: opiate/etoh withdrawal. Started on a 5 day Valium and 3 day Subutex taper, first dose administered during shift. During shift continued to exhibit the following s/sx of withdrawal: elevated heart rate, sweats, difficulty sitting still, fidgety, enlarged pupils, agitation, bone and joint aches, nasal congestion, nausea, tremors, anxiety, irritability and diarrhea. Patient with last cow score of; 12, and ciwa score of: 18. Patient received PRN: Ativan, Zofran, Subutex, and Imodium, during shift, all as ordered. Patient denies any SI/HI. Encouraged patient to develop coping skills and utilization of non pharmacological interventions. Patients safety measures are in place. call light with in reach at all times. Encouraged adequate PO fluid intake as tolerated. patient endorsed to police shift commander nurse, all pertinent information discussed.
--- NOTE | 2018-06-12 19:15 | NUR ---
Start of Shift Note: Patient is a 48 y.o male admitted on 06/12/18 for medically supervised withdrawal from ETOH & Opiates use. Patient started this afternoon on a 5-day Valium taper and tolerating well and 3-day Subutex taper will be started tonight on my shift. Patient is alert & oriented x4. He is disheveled and unkempt with dirty fingernails noted. He is restless in bed and appears anxious. He presented with gross tremors, sweating, chills, stomach cramps, reports moderate headache, knee aches and weakness. Pt denies hallucinations at this time. He received PRN Ativan, Zofran, Subutex and Immodium during the day. Last COWS 12 CIWA 18 during day shift. Encourage pt to increase fluid intake. All needs attended & met. Educated pt of current plan of care for the night and medication regimen. Safety measures in place. Will continue to monitor patient.
[2018-06-12 20:00] VITALS: BP 111/75
[2018-06-12] MEDS: MIRTAZAPINE 15 MG TABLET PO SCH (20:09)
[2018-06-12] MEDS ORDERED: BUPRENORPHINE HCL 2 MG TAB.SUBL SL SCH (21:00)
[2018-06-13] VITALS: BP 129/85
--- NOTE | 2018-06-13 | NUR ---
COWS/CIWA Assessment Patient still awake at this time. Per pt, he is unable to fall asleep at this time. Pt continues to present with restlessness, sweating, chills, myalgia and muscle cramping, anxiety, agitation, gross tremors, and headache. COWS 11 CIWA 13 at this time. Offered patient medications for his symptoms but he refuses. Per pt, he is okay for now. All needs attended. Safety measures in place. Will continue to monitor patient.
[2018-06-13] MEDS: METHOCARBAMOL 500 MG TABLET PO PRN (02:08)
--- NOTE | 2018-06-13 02:08 | NUR ---
PRN Robaxin Patient complained of muscle cramping. PRN Robaxin administered as ordered. Will montior for effectiveness of medication.
--- NOTE | 2018-06-13 03:08 | NUR ---
PRN Reassessment Patient verbalized relief from muscle cramps after 1 hour of medication administration. Safety measures in place. Will continue to monitor patient.
[2018-06-13 04:00] VITALS: BP 125/76
[2018-06-13] MEDS: PANTOPRAZOLE SODIUM 40 MG TABLET.DR PO SCH (06:40)
--- NOTE | 2018-06-13 07:15 | NUR ---
End of Shift Note: Patient is a 48 y.o male admitted on 06/12/18 for medically supervised withdrawal from ETOH & Opiates use. During my shift, pt presented with restlessness, anxiety, agitation, myalgia, gross tremors, sweating, chills, stomach cramps, & headache. Patient started yesterday on a 3-day Subutex and 5-day Valium taper and he is tolerating medications well. He reported taper medications to be effective in decreasing his withdrawal symptoms. Pt received Robaxin during my shift and were effective. Last COWS CI 13. Continue to encourage pt to increase fluid intake for hydration and to attend group activities to learn coping skills. Pt was not able to sleep at all during my shift, he was offered PRN medications but refused. Per pt, he will ask psychiatrist today for sleeping medication that will work. Fluid intake 1657 ml, Voided 2x with no bowel movement. All needs attended. Safety measures in place. Will endorse pt to day shift nurse.
--- NOTE | 2018-06-13 07:15 | NUR ---
BEGINNING OF SHIFT Patient endorsement report received from maintenance technician 2nd shift nurse, all pertinent information was discussed. Patient is a 48 year old male. admitting Dx: ETOH/Opiate withdrawal. Patient started on a 5 day Valium taper, and 3 day Subutex taper as ordered, and is scheduled to begin day 2 of taper. Per maintenance technician 2nd shift patient with poor sleep during maintenance technician 2nd shift, slept for 0 hours, per maintenance technician 2nd shift patient was offered sleeping medication and was refused. Received PRN:Robaxin, as per maintenance technician 2nd shift medications was effective. Patient with last cow score of: 11, and last ciwa score of: 13. Patient received awake, alert and oriented x4, educated regarding plan of care for the day and medication regimen. will continue to monitor closely. safety measures are in place. call light with in reach.
[2018-06-13 08:00] VITALS: BP 111/85
[2018-06-13] MEDS: DIAZEPAM 10 MG TABLET PO SCH ×3 (08:18→21:13)
[2018-06-13] MEDS: THIAMINE HCL 100 MG TABLET PO SCH (08:18)
[2018-06-13] MEDS: FOLIC ACID 1 MG TABLET PO SCH (08:18)
[2018-06-13] MEDS: DIVALPROEX 500 MG TABLET.DR PO SCH ×2 (08:18→22:16)
[2018-06-13] MEDS: MULTIVITAMINS,THERAPEUTIC TABLET PO SCH (08:18)
[2018-06-13] MEDS: BUPRENORPHINE HCL 2 MG TAB.SUBL SL SCH ×3 (08:19→21:13)
[2018-06-13] MEDS ORDERED: TUBERCULIN,PURIF.PROT.DERIV. 5 TU/0.1 ML TEST ID ONE (09:00)
--- NOTE | 2018-06-13 09:00 | NUR ---
COW/CIWA ASSESSMENT Patient awake, alert and oriented x4 presented with labile mood, and anxious and depressed affect. Patient Noted disheveled. Encouraged patient maintenance of hygiene and personal space with good verbal understanding. During assessment patient exhibited the following s/sx: flushed, clammy skin, difficulty sitting still, enlarged pupils, mild bone and joint aches, moist eyes, abdominal cramps, fine tremors, anxiety and irritability. CIWA score of: 14. Safety measures are in place. call light with in reach, will continue to monitor.
[2018-06-13 12:56] VITALS: BP 96/61
--- NOTE | 2018-06-13 13:00 | NUR ---
COW/CIWA ASSESSMENT Patient continues to exhibit the following s/sx of withdrawal: flushed, clammy skin, difficulty sitting still, enlarged pupils, mild bone and joint aches, moist eyes, abdominal cramps, fine tremors, anxiety and irritability. CIWA score of: 14. COW: 12, continues on Valium and Subutex taper as ordered. Safety measures are in place. call light with in reach, will continue to monitor.
[2018-06-13 13:10] LABS: HEPATITIS B SURFACE AG Negative (Negative)
[2018-06-13] MEDS: ENSURE WITH FIBER 237 ML LIQUID (CHOCOLATE) PO SCH ×2 (15:55→18:41)
[2018-06-13 17:14] VITALS: BP 112/68
--- NOTE | 2018-06-13 19:00 | NUR ---
END OF SHIFT Patient alert and oriented x4. Patient with admitting Dx: opiate/etoh withdrawal. Started on a 5 day Valium and 3 day Subutex taper, continues as ordered on day 2 of tapers. During shift continued to exhibit the following s/sx of withdrawal: flushed, clammy skin, difficulty sitting still, enlarged pupils, mild bone and joint aches, moist eyes, abdominal cramps, fine tremors, anxiety and irritability. CIWA score of: 14. COW: 12, Received no PRN medications during shift. MD notified of Lipase lab level. Patient denies any SI/HI. Encouraged patient to develop coping skills and utilization of non pharmacological interventions. Patients safety measures are in place. call light with in reach at all times. Encouraged adequate PO fluid intake as tolerated. patient endorsed to machinist 2nd shift nurse, all pertinent information discussed.
--- NOTE | 2018-06-13 19:15 | NUR ---
Start of Shift Note: Patient is a 48 y.o male admitted on 06/12/18 for medically supervised withdrawal from ETOH & Opiates use. Patient continues on a 5-day Valium taper and 3-day Subutex taper and tolerating well. He is alert & oriented x4. He continues to be on a disheveled state, unkempt with dirty fingernails noted. He continues to be restless, anxious & irritable. He presented with flushing, fine tremors, sweating, chills, stomach cramps, reports headache & body aches. Pt denies hallucinations at this time. He did not receive any PRN medication during day shift. Last COWS 12 CIWA12. Encourage pt to increase fluid intake. All needs attended & met. Educated pt of current plan of care for the night and medication regimen. Safety measures in place. Will continue to monitor patient.
[2018-06-13 20:00] VITALS: BP 119/85
[2018-06-13] MEDS: MIRTAZAPINE 15 MG TABLET PO SCH (22:16)
[2018-06-14 01:42] VITALS: BP 142/91
[2018-06-14] MEDS: CLONIDINE HCL 0.1 MG TABLET PO PRN (01:43)
[2018-06-14] MEDS: METHOCARBAMOL 500 MG TABLET PO PRN (01:43)
--- NOTE | 2018-06-14 01:47 | NUR ---
PRN Robaxin/Clonidine/Miralax Pt still awake at this time and appears restless & anxious. Patient complained of 4/10 generalized body aches, sweating, chills & constipation. PRN Robaxin, Clonidine & Miralax administered as ordered. Will monitor for effectiveness of medication.
--- NOTE | 2018-06-14 02:47 | NUR ---
PRN Reassessment Pt still awake at this time but verbalized that he is starting to get tired. Pt also reported decreased in sweating & chills & relief from body aches after 1 hour of medication administration. Pt still no BM noted at this time. Safety measures in place. Will continue to monitor patient.
--- NOTE | 2018-06-14 06:59 | NUR ---
End of Shift Note: Continue to closely monitor patient. Patient continues on a 5-day Valium taper and 3-day Subutex taper and tolerating well. He remains alert & oriented x4. He continues to be on a disheveled state, unkempt with dirty fingernails noted. He continues to present restlessness, anxiety, agitation, myalgia, fine tremors, sweating, chills, stomach cramps, & headache. No hallucinations noted. He received PRN Robaxin. Clonidine & Miralax during my shift and were effective. Last COWS 10 CIWA11. Pt remained stable and Vitals noted WNL. Continue to encourage pt to increase fluid intake for hydration and to attend group activities to learn coping skills. He slept for a total of 3 hours. Fluid intake 855 ml, Voided 4x with no bowel movement. All needs attended. Safety measures in place. Will endorse pt to day shift nurse.
--- NOTE | 2018-06-14 07:40 | NUR ---
START OF SHIFT PT IS A 48 Y/O M ADMITTED ON 06/12/18 FOR MEDICALLY SUPERVISED ETOH-[place] AND OPIATE WITHDRAWAL. PT IS PLACED ON A 3 DAY SUBUTEX AND 5 DAY VALIUM TAPER AND TOLERATING WELL. PT IS LAYING IN BED WITH EYES CLOSED, SLEEPING. LAST COWS 10 AND CIWA 11 @0130. PT HAS BEEN GIVEN CLONIDINE, ROBAXIN, MIRALAX PRNS LAST SHIFT. PT HAD BEEN UP FOR 26 HRS PER PROJECT DEVELOPER NURSE. SIDE RAILS UPX2 AND PADDED, BED IN LOWEST POSITION. CALL LIGHT WITHIN REACH. SAFETY MEASURES IN PLACE. WILL CONTINUE TO MONITOR.
[2018-06-14 08:00] VITALS: BP 124/77
--- NOTE | 2018-06-14 08:30 | NUR ---
COWS AND CIWA ASSESSMENT COWS 14 AND CIWA 14. PT IS A/OX4, HAS A FLAT AFFECT, PT PRESENTS RESTLESSLY MOVING AROUND, FATIGUE, ANXIETY, AGITATION, INTERMITTENT COLD/HOT FLASHES, CHILLS, GENERALIZED BODY ACHES, JOINT AND BONE ACHES, STOMACH CRAMPS, HEADACHE, SWEATING, CLAMMY SKIN, PUPILS LARGER THAN NORMAL AND FINE TREMORS NOTED.
[2018-06-14] MEDS: THIAMINE HCL 100 MG TABLET PO SCH (08:44)
[2018-06-14] MEDS: DIAZEPAM 5 MG TABLET PO SCH ×4 (08:44→22:03)
[2018-06-14] MEDS: PANTOPRAZOLE SODIUM 40 MG TABLET.DR PO SCH (08:44)
[2018-06-14] MEDS: MULTIVITAMINS,THERAPEUTIC TABLET PO SCH (08:44)
[2018-06-14] MEDS: DIVALPROEX 500 MG TABLET.DR PO SCH ×2 (08:44→22:03)
[2018-06-14] MEDS: FOLIC ACID 1 MG TABLET PO SCH (08:44)
[2018-06-14] MEDS: ENSURE WITH FIBER 237 ML LIQUID (CHOCOLATE) PO SCH ×2 (08:45→17:49)
[2018-06-14] MEDS ORDERED: BUPRENORPHINE HCL 2 MG TAB.SUBL SL SCH (09:00)
[2018-06-14 12:00] VITALS: BP 118/86
--- NOTE | 2018-06-14 12:00 | NUR ---
COWS AND CIWA ASSESSMENT COWS 15 AND CIWA 14. PT IS PRESENTS RESTLESSNESS, ANXIETY, AGITATION, FATIGUE, INTERMITTENT COLD/HOT FLASHES, PUPILS LARGER THAN NORMAL, CHILLS, GENERALIZED BODY ACHES, LOWER BACK PAIN 5/10, STOMACH CRAMPS, HEADACHE, SWEATING, CLAMMY SKIN, AND FINE/GROSS TREMORS NOTED. PT REPORTS OPIATE WITHDRAWALS ARE SLOWLY INCREASING IN INTENSITY.
[2018-06-14] MEDS: IBUPROFEN 600 MG TABLET PO PRN (13:34)
--- NOTE | 2018-06-14 13:34 | NUR ---
PRN IBUPROFEN 600 MG PO PRN GIVEN FOR C/O BILATERAL FLANK PAIN WITH FACIAL GRIMACING. WILL MONITOR AND REASSESS.
--- NOTE | 2018-06-14 14:34 | NUR ---
REASSESSMENT PT REPORTS MED EFFECTIVE IN DECREASING BILATERAL FLANK PAIN TO 3/10. WILL CONTINUE TO MONITOR.
[2018-06-14 16:00] VITALS: BP 119/69
--- NOTE | 2018-06-14 18:33 | NUR ---
END OF SHIFT PT HAS COMPLETED THE 3 SUBUTEX TAPER TODAY AND TOLERATED WELL. PT CONTINUES ON THE VALIUM TAPER AND TOLERATING IT WELL. LAST COWS 15 AND CIWA 14. PT REPORTS HAVING INCREASED IN OPIATE WITHDRAWALS. R KNEE IMMOBILIZER ORDERED BY MD; AMYLASE, LIPASE, TSH, FREE T4 AN LIVER FUNCTION TESTS ORDERED. PT HAS BEEN COMPLIANT WITH MED REGIMEN AND TX PLAN; STATES HE IS WANTING TO GO TO TREATMENT AFTER DETOX AND IS LOOKING FORWARD TO IT. PT STATES COMING TO DETOX IS DIFFERENT THIS TIME BECAUSE HE WANTS TO BE HERE, RECEPTIVE TO THE HELP AND IS DOING IT FOR HIMSELF. ENCOURAGED PT TO INCREASE FOOD INTAKE; PT ATE 25-50% OF MEALS. FLUID INTAKE 3112ML, VOIDED X15, BM 0. SAFETY MEASURES IN PLACE.
--- NOTE | 2018-06-14 19:15 | NUR ---
Start of Shift Note: Patient is a 48 y.o male admitted on 06/12/18 for medically supervised withdrawal from ETOH & Opiates use. Patient continues on a 5-day Valium taper and he completed his 3-day Subutex taper. He remained alert & oriented x4. He continues to be on a disheveled state, unkempt with dirty fingernails noted. He present with restlessness, anxious/rritable mood, flushing, fine tremors, sweating, chills, cramps, reports mild headache & 4/10 body aches. Pt denies hallucinations at this time. He received PRN Motrin during day shift for headache and was effective per report. Last COWS 15 CIWA14. Encourage pt to increase fluid intake. All needs attended & met. Educated pt of current plan of care for the night and medication regimen. Safety measures in place. Will continue to monitor patient.
[2018-06-14 20:00] VITALS: BP 116/75
[2018-06-14] MEDS: MIRTAZAPINE 15 MG TABLET PO SCH (22:03)
[2018-06-15 00:30] VITALS: BP 108/68
[2018-06-15] MEDS: METHOCARBAMOL 500 MG TABLET PO PRN (00:37)
[2018-06-15] MEDS: CLONIDINE HCL 0.1 MG TABLET PO PRN (00:37)
--- NOTE | 2018-06-15 00:37 | NUR ---
PRN Robaxin/Clonidine Pt still awake at this time. He appears fidgety and anxious in bed. Patient presents with sweating, chills, myalgia,& mild headache. PRN Robaxin & Clonidine administered as ordered. Will monitor for effectiveness of medication.
--- NOTE | 2018-06-15 01:37 | NUR ---
PRN Reassessment Pt asleep in bed and appears calm & comfortable. Respiration even & unlabored. No facial grimacing noted. Safety precautions are in place. Will continue to monitor patient.
[2018-06-15] MEDS: PANTOPRAZOLE SODIUM 40 MG TABLET.DR PO SCH (06:44)
[2018-06-15] MEDS: IBUPROFEN 600 MG TABLET PO PRN (06:46)
--- NOTE | 2018-06-15 06:46 | NUR ---
PRN Motrin Patient complained of 6/10 headache. PRN Motrin administered as ordered. Will monitor for effectiveness of medication.
--- NOTE | 2018-06-15 07:06 | NUR ---
End of Shift Note: Continue to closely monitor patient. Pt completed his Subutex taper and on his 5-day Valium taper. He remains alert & oriented x4. He continues to be on a disheveled state, unkempt with dirty fingernails noted. Encourage pt to maintain proper hygiene. He continues to present restlessness, anxiety, agitation, myalgia, fine tremors, sweating, chills, stomach cramps, & headache. No hallucinations noted. He received PRN Robaxin & Clonidine during my shift and were effective. Last COWS 10 CIWA13. Pt remained stable and Vitals noted WNL. Continue to encourage pt to increase fluid intake for hydration and to attend group activities to learn coping skills. He slept for a total of 6 hours. Fluid intake 1585 ml, Voided 4x with no bowel movement. All needs attended. Safety measures in place. Will endorse pt to day shift nurse.
--- NOTE | 2018-06-15 07:46 | NUR ---
MOTRIN REASSESSMENT Per patient Motrin was effective which was given by night nurse headache lower to 2/10.
[2018-06-15 08:00] VITALS: BP 107/71
[2018-06-15 08:00] LABS: BILIRUBIN,DIRECT 0.1 mg/dL (0.0-0.2); BILIRUBIN,TOTAL 0.4 mg/dL (0.2-1.0); TOTAL PROTEIN, SERUM 5.9 g/dL (6.4-8.2)
--- NOTE | 2018-06-15 08:00 | NUR ---
COWS/CIWA ASSESSMENT Patient has poor eye contact, mood is sad, and continues to exhibit s/s of withdrawal such as bilateral hand tremors, sweats, chills, stuffy nose, anxiety, agitation, light headed, CIWA score -13, and COWS noted-10. Will cont to monitor.
--- NOTE | 2018-06-15 08:08 | NUR ---
START OF SHIFT NOTE Received report from night nurse 28 year old male admitted for ETOH/[place] withdrawal and patient continues with Valium and Subutex taper completed yesterday, tolerating well. Per endorsement patient did not receive any PRN Clonidine, Robaxin effective per night nurse, last CIWA , -10 slept for 6 hours. Received patient alert awake oriented x4, anxious, agitated, restless, bilateral hand tremors noted, sweats, chills, hot and cold flashes. Educated patient with plan of care and medication regimen with good verbal understanding. All safety measures in place,call light within reach. Will continues to monitor. Addendum: 06/15/18 at 1254 by JOHNNIE RAJAN LVN Correction -patient is 48 year old not 28.
[2018-06-15 08:09] LABS: THYROID STIMULATING HORMONE 2.322 mIU/mL (0.358-3.740)
[2018-06-15] MEDS: MULTIVITAMINS,THERAPEUTIC TABLET PO SCH (08:28)
[2018-06-15] MEDS: THIAMINE HCL 100 MG TABLET PO SCH (08:29)
[2018-06-15] MEDS: DIAZEPAM 5 MG TABLET PO SCH ×3 (08:29→21:11)
[2018-06-15] MEDS: DIVALPROEX 500 MG TABLET.DR PO SCH ×2 (08:29→21:10)
[2018-06-15] MEDS: FOLIC ACID 1 MG TABLET PO SCH (08:29)
[2018-06-15] MEDS: ENSURE WITH FIBER 237 ML LIQUID (CHOCOLATE) PO SCH ×2 (08:33→18:19)
[2018-06-15 12:00] VITALS: BP 103/70
--- NOTE | 2018-06-15 12:00 | NUR ---
COWS/CIWA ASSESSMENT Patient is alert oriented, labile facial expression, anhedonia, and continues to exhibit s/s of withdrawal such as bilateral hand tremors, sweats, chills, stuffy nose,stomach cramps, still difficulty sitting still, patient reported slightly decreased in anxiety, agitation, restless, skin is smooth, body aches, light headed, CIWA score -12, and COWS noted-8. Will cont to monitor.
[2018-06-15 16:00] VITALS: BP 99/74
--- NOTE | 2018-06-15 16:00 | NUR ---
COWS/CIWA ASSESSMENT Patient continues to exhibit s/s of withdrawal such as bilateral hand tremors, sweats, chills, stuffy nose, patient reported slightly decreased in anxiety, agitation, restless, CIWA score -10, and COWS noted-7. Will cont to monitor.
--- NOTE | 2018-06-15 16:38 | NUR ---
Client was prompted to attend twice daily group counseling sessions.
--- NOTE | 2018-06-15 19:05 | NUR ---
END OF SHIFT NOTE Gave report to night nurse, 48 year old male admitted for ETOH/[place] withdrawal and continues with Valium taper tolerating well. Patient continues to exhibit anxiety, agitation, restless, anhedonia, sad facial expression, worried, fine bilateral hand tremors noted. Patient reports increased diaphoresis. Patient received scheduled medications. Patient is compliant with medications and treatment plan. Encourage patient to attend groups activities to learn new coping skills. Most recent CIWA score-10, COWS-7. All safety measures in place, call light within reach. Patient endorse to night nurse in stable condition.
--- NOTE | 2018-06-15 19:05 | NUR ---
START OF SHIFT Presented 48 year old male tolerated well with ordered 5 Day Valium and 3 day Subutex Tapers for Alcohol (Vodka) and Opioid ([place], Suboxone) withdrawal. The patient reports NKA, Regular diet, is on Fall and Seizures Precautions. Past Medical History: Anxiety, Depression, Insomnia, Bipolar D/O, History of withdrawal-induced seizures (06/01/2018). The patient denies SI/HI. The patient appears with anxious mood and liable affect. Last COWS=7, CIWA=10 at 1600. The patient c/o anxiety, agitation, nervousness, irritability, nausea, abdominal cramps, restlessness, fatigue, nervousness, tremors, pins and needles sensations, and fatigue. No PRN medications was administrated during day shift. The patient remains compliant with treatment, medications, and diet regime. VSWNL. Skin is intact, warm and dry to touch. Encouraged to fluids intake as tolerated. Encouraged to attend group activities. Safe and calm environment with minimized noises was provided. All needs met. Safety measures: Call light within reach, bed is locked in lowest position, and padded bed rails up bilaterally. The patient endorsed by outgoing day shift nurse. Will continue to monitor closely. Addendum: 06/15/18 at 1939 by ROGER CHAMBERS RN Presented 48 year old male tolerated well with ordered 5 Day Valium and 3 day Subutex Tapers for Alcohol (Vodka), Opioid ([place]), and Suboxone withdrawal.
[2018-06-15 20:00] VITALS: BP 124/80
[2018-06-15] MEDS: MIRTAZAPINE 15 MG TABLET PO SCH (21:10)
[2018-06-16] VITALS: BP 133/85
[2018-06-16] MEDS: METHOCARBAMOL 500 MG TABLET PO PRN ×2 (00:35→12:57)
--- NOTE | 2018-06-16 00:35 | NUR ---
PRN ROBAXIN 750 MG PO ADMINISTRATION Patient c/o myalgia and asked aid. PRN Robaxin 750 mg PO administrated with full glass of water as ordered. Patient tolerated well. Safe and calm environment provided. All needs met. Safety measures: Call light within reach, bed locked in lowest position, padded bed rails up bilaterally. Will continue to monitor closely.
[2018-06-16] MEDS: CLONIDINE HCL 0.1 MG TABLET PO PRN (00:42)
--- NOTE | 2018-06-16 00:42 | NUR ---
PRN CLONIDINE 0.1 MG 1 CAPSULE PO ADMINISTRATION PRN Clonidine 0.1 mg PO administrated for anxiety as ordered. Patient tolerated well. Safe and calm environment with minimized noises was provided. All needs met. Safety measures: Call light within reach, bed in lowest position locked, and padded rails up bilaterally. Will continue to monitor closely.
--- NOTE | 2018-06-16 01:35 | NUR ---
PRN ROBAXIN 750 MG PO RE-ASSESSMENT Patient is sleeping. RR 14. Respirations even and unlabored. PRN Robaxin 750 mg PO administrated for myalgia at 0035 was effective. All needs met. Safety measures: Call light within reach, bed in lowest position locked, padded rails up bilaterally. Will continue to monitor closely.
--- NOTE | 2018-06-16 01:42 | NUR ---
PRN CLONIDINE PO RE-ASSESSMENT Patient is sleeping. RR 14. Respirations even and unlabored. PRN Clonidine 0.1mg PO administrated for anxiety at 0042 was effective. All needs met. Safety measures: Call light within reach, bed in lowest position locked, padded rails up bilaterally. Will continue to monitor closely.
--- NOTE | 2018-06-16 01:42 | NUR ---
PRN VISTARIL PO RE-ASSESSMENT Patient is sleeping. RR 14. Respirations even and unlabored. PRN Vistaril 25 mg PO administrated for anxiety at 0042 was effective. All needs met. Safety measures: Call light within reach, bed in lowest position locked, padded rails up bilaterally. Will continue to monitor closely. Addendum: 06/16/18 at 0531 by ROGER CHAMBERS RN error:wrong note
--- NOTE | 2018-06-16 04:00 | NUR ---
VS REFUSED, COWS/CIWA DEFERRED VS refused, COWS/CIWA deferred at 0400 due to patient sleeping; to be assessed and scored while patient is awake. Respirations are even and unlabored. RR: 15. Safe and calm environment provided. All needs met. Safety measures in place: Call light within reach, bed locked in lowest position, and padded bed rails up bilaterally. Will continue to monitor closely.
[2018-06-16] MEDS: PANTOPRAZOLE SODIUM 40 MG TABLET.DR PO SCH (06:50)
[2018-06-16] MEDS: IBUPROFEN 600 MG TABLET PO PRN (06:51)
--- NOTE | 2018-06-16 06:51 | NUR ---
PRN MOTRIN 600 MG 1 TABLET PO ADMINISTRATION: Patient c/o headache "05/11". PRN Motrin 600 mg PO administrated as ordered with full glass of water at 0651. The patient tolerated well. Safe and calm environment with minimized noises was provided. All needs met. Safety measures: Call light within reach, bed locked in the lowest position, and padded rails up x2. Will continue to monitor closely.
--- NOTE | 2018-06-16 07:00 | NUR ---
END OF SHIFT NOTE: The patient is a 48 year old male presented for ETOH (Vodka), Opioid ([place]), and Suboxone withdrawal, tolerated well with ordered 5 Day Valium Taper. 3 day Subutex taper PRN ordered per [facility] protocol. Patient remains compliant with treatment, medications, and diet regime. Withdrawal symptoms was closely monitored. The patient reports NKA, Regular diet, is on Fall and Seizures Precautions. Past Medical History: Anxiety, Depression, Insomnia, Bipolar D/O, History of withdrawal-induced seizures (06/01/2018). Patient is alert and orientedx4, cooperative, mood and affect are anxious and labile. The patient denies SI/HI. COWS=15, CIWA=14 at 2000, COWS=14, CIWA=14 at 0000: The patient appears with anxiety, agitation, nervousness, tremors, nasal congestion, very mild pins and needles sensations, sweating, yawning, restlessness, and fatigue. VS refused, COWS/CIWA deferred for 0400 due patient sleeping. Skin remains intact, warm, and dry to touch. PRN Robaxin 750 mg PO administrated for myalgia at 0035, PRN Clonidine 0.1 mg PO administrated for anxiety at 0042, PRN Motrin 600 mg PO administrated for headache "6/10", and were effective. Encouraged to increase oral fluids intake as tolerated. Encouraged to attend groups activities. Calm and safety environment with minimized noises was provided. Patient slept 6 hours, intake 582 ml, voided x4. All needs met. Safety measures in the place: Call light within reach, bed in the lowest position locked, padded rails up x2. Patient endorsed to day shift nurse.
--- NOTE | 2018-06-16 07:03 | NUR ---
END OF SHIFT Presented patient is a 36 year old male admitted for Methamphetamine withdrawal, is on PRN Medications. The patient is alert and oriented x4, ambulatory, with stable gate. The patient is cooperative, with soft and clear speech. The patient noted with flat affect and labile mood. Educated to use of Relaxation Techniques: deep breathing exercises, guided imagery, and visualization. Encouraged verbalization of feelings, fears, and anxiety. Emotional support and reassurance provided to patient. The patient noted disheveled, unshaven, unkempt with uncombed hair. Encouraged to independently perform hygiene care. CIWA=9 at 2000, CIWA=7 at 0000. During my shift the patient presented with anxiety, agitation, nervousness, irritability, sweating, restlessness, and fatigue. Withdrawal symptoms will be closely monitored. VS refused, CIWA deferred at 0400 due to patient sleeping; to be assessed and scored while patient is awake. RR: 16. Respirations are even and unlabored. No PRN Medications administrated during my shift. No S/S of distress noted during my shift. Respirations are unlabored and even. Skin is intact, warm and dry to touch. Safe and calm environment with minimized noises was provided. Encouraged to increase oral fluid intake as tolerated. Patient scheduled for discharging today. Patient slept for 10 hours, intake 1,000 ml, voided x1. All needs met. Safety measures: Call light within reach, bed in the lowest position and locked, and padded bed rails up x2. Patient endorsed to day shift nurse.
--- NOTE | 2018-06-16 07:51 | NUR ---
MOTRIN REASSESSMENT' Per patient Motrin was effective which was given by night nurse headache lower to 3/10.
--- NOTE | 2018-06-16 07:53 | NUR ---
START OF SHIFT NOTE Received report from night nurse 48 year old male admitted for ETOH/[place] withdrawal and patient continues with Valium and Subutex taper completed yesterday, tolerating well. Per endorsement patient did not received PRN Clonidine, Robaxin effective per night nurse, last , slept for 6 hours. Received patient alert awake oriented x4, anxious, agitated, restless, bilateral hand tremors noted, sweats, hot and cold flashes, mood is sad, odorous breath, slumped posture, poor eye contact. Educated patient with plan of care and medication regimen with good verbal understanding. All safety measures in place,call light within reach. Will continues to monitor. Addendum: 06/16/18 at 0904 by JOHNNIE RAJAN LVN Correction- patient received PRN Clonidine,Robaxin effective per night nurse.
[2018-06-16 08:00] VITALS: BP 103/73
--- NOTE | 2018-06-16 08:00 | NUR ---
COWS/CIWA ASSESSMENT Patient appears suspicious and continues to exhibit s/s of withdrawal such as bilateral hand tremors, sweats, chills, stuffy nose, difficulty sitting still, yawning, anxiety, restless, agitation, light headed, CIWA score -13, and COWS score -10. Will cont to monitor.
[2018-06-16] MEDS: DIAZEPAM 5 MG TABLET PO SCH ×2 (08:31→21:58)
[2018-06-16] MEDS: THIAMINE HCL 100 MG TABLET PO SCH (08:31)
[2018-06-16] MEDS: DIVALPROEX 500 MG TABLET.DR PO SCH ×2 (08:31→21:58)
[2018-06-16] MEDS: MULTIVITAMINS,THERAPEUTIC TABLET PO SCH (08:31)
[2018-06-16] MEDS: FOLIC ACID 1 MG TABLET PO SCH (08:31)
[2018-06-16] MEDS: ENSURE WITH FIBER 237 ML LIQUID (CHOCOLATE) PO SCH ×2 (08:34→18:33)
[2018-06-16 12:00] VITALS: BP 109/78
--- NOTE | 2018-06-16 12:00 | NUR ---
COWS/CIWA ASSESSMENT Patient appears worried, flat facial expression and continues to exhibit s/s of withdrawal such as bilateral hand tremors, sweats, stuffy nose, anxiety, agitation, light headed, sever muscle cramps, CIWA score -12, and COWS noted-9. Will cont to monitor.
--- NOTE | 2018-06-16 12:57 | NUR ---
PRN ROBAXIN Patient came to the nursing station and reports lower extremities muscle cramps 06/10. Patient provided with non pharmacological intervention with no relief. PRN Robaxin 750mg PO administered as ordered. Will cont to monitor and reassess the patient.
--- NOTE | 2018-06-16 13:15 | NUR ---
Client was prompted to attend daily group counseling sessions.
--- NOTE | 2018-06-16 13:57 | NUR ---
ROBAXIN REASSESSMENT Per patient Robaxin was effective feeling less legs cramps and spasms 2/10.
[2018-06-16 16:00] VITALS: BP 138/87
--- NOTE | 2018-06-16 16:00 | NUR ---
COWS/CIWA ASSESSMENT Patient noted with labile facial expression and continues to exhibit s/s of withdrawal such as bilateral hand tremors, sweats, stuffy nose, per patient little decreased in anxiety, agitation, light headed, CIWA score -10, and COWS noted-8. Will cont to monitor.
[2018-06-16] MEDS: ACETAMINOPHEN 325 MG TABLET PO PRN (17:13)
--- NOTE | 2018-06-16 17:13 | NUR ---
PRN TYLENOL Patient came to nursing station and reported bilateral legs pain 5/10. PRN Tylenol 650mg PO administered as ordered. Will cont to monitor and reassess the patient.
--- NOTE | 2018-06-16 18:13 | NUR ---
TYLENOL REASSESSMENT Per patient Tylenol was effective in lower bilateral leg pain 2/10.
--- NOTE | 2018-06-16 19:09 | NUR ---
END OF SHIFT NOTE Gave report to night nurse, 48 year old male patient admitted for ETOH and [place] withdrawal and continues with Valium and Subutex taper was completed yesterday. Patient presented with sad facial expression, unkempt room, anxiety, agitation, restless, sever muscle spasms, light headed, sweats, bilateral hand tremors. Patient was given scheduled medications and PRN Robaxin 750mg PO and Tylenol 650mg PO noted to be effective. Encourage patient to attend groups activities to learn new coping skills. Encourage patient to use call light if light headed increased to prevent any fall. Patient verbalized understanding. All safety measures in place, call light within reach. Patient endorse to night nurse in stable condition.
--- NOTE | 2018-06-16 19:30 | NUR ---
START OF SHIFT Pt is a 48 y/o male admitted on 06/12/18 for ETOH and opiate withdrawal. Pt finished a 3 day Subutex taper and is on a 5 day Valium taper, tolerating well. Last COWS 8 and CIWA 10 and PRN Robaxin and Tylenol administered during day shift. Upon assessment pt presents with anxiety, flat affect, restlessness, intermittent sweats, right knee pain 5/10, increased BP, insomnia, body aches, unkempt room, slumped posture and racing thoughts. Medications due. Safety measures in place. Call light within reach. Will continue to monitor.
[2018-06-16 20:00] VITALS: BP 152/71
--- NOTE | 2018-06-16 20:00 | NUR ---
COWS 7 AND CIWA 11 Pt presents with anxiety, restlessness, intermittent sweats, increased BP, insomnia, body aches.
[2018-06-16] MEDS: MIRTAZAPINE 15 MG TABLET PO SCH (21:58)
[2018-06-17] VITALS: BP 123/91
--- NOTE | 2018-06-17 | NUR ---
COWS 7 AND CIWA 13 Pt presents with anxiety, agitation, restlessness, fidgety, intermittent sweats, intermittent chills, headache, body aches. Pt states, "I feel wide awake."
[2018-06-17] MEDS: CLONIDINE HCL 0.1 MG TABLET PO PRN (00:22)
[2018-06-17] MEDS: METHOCARBAMOL 500 MG TABLET PO PRN (00:22)
[2018-06-17] MEDS: IBUPROFEN 600 MG TABLET PO PRN ×2 (00:28→17:40)
--- NOTE | 2018-06-17 00:28 | NUR ---
PRN CLONIDINE, ROBAXIN AND MOTRIN ADMINISTRATION Pt presents with anxiety, agitation, intermittent sweats, intermittent chills, body aches, bilateral knee pain 03/11. Safety measures in place. Call light within reach. Will continue to monitor. Addendum: 06/17/18 at 0047 by TANA HARRIS RN Additional: Pt complains of headache.
--- NOTE | 2018-06-17 01:28 | NUR ---
PRN CLONIDINE, ROBAXIN AND MOTRIN REASSESSMENT Pt laying in bed with eyes closed, medications noted effective. Safety measures in place. Call light within reach. Will continue to monitor.
--- NOTE | 2018-06-17 04:00 | NUR ---
COWS/CIWA DEFERRED AND VITALS REFUSED Pt laying in bed with eyes closed, COWS/CIWA deferred, to be assessed when pt is awake per orders. Vitals refused. Respirations even and unlabored. Safety measures in place. Call light within reach. Will continue to monitor.
[2018-06-17] MEDS: PANTOPRAZOLE SODIUM 40 MG TABLET.DR PO SCH (06:58)
--- NOTE | 2018-06-17 07:04 | NUR ---
END OF SHIFT Pt is a 48 y/o male admitted on 06/12/18 for ETOH and opiate withdrawal. Pt finished a 3 day Subutex taper and is on a 5 day Valium taper, tolerating well. Pt presented with anxiety, flat affect, restlessness, intermittent sweats, bilateral knee pain, headache, increased BP, difficulty falling asleep, body aches, unkempt room, slumped posture and racing thoughts. Scheduled medications and PRN Clonidine, Robaxin and Motrin administered, effective in S/S of withdrawal as verbalized by pt. Last COWS 7 and CIWA 13 at 0000. Pt slept 7 hours. Intake 1565 ml, void x 12, stool x 1. Safety measures in place. Call light within reach. Pts needs have been met. Endorsed to day shift nurse.
--- NOTE | 2018-06-17 07:50 | NUR ---
START OF SHIFT NOTE Received report from night nurse 48 year old male admitted for ETOH/[place] withdrawal and patient continues with Valium and Subutex taper completed. Per endorsement patient received PRN Clonidine, Robaxin, Motrin effective per night nurse, last CIWA 13, COWS-7 slept for 7 hours. Received patient alert awake oriented x4, labile facial expressions, anxious, agitated, restless, bilateral hand tremors noted, sweats, hot and cold flashes, slumped posture, poor eye contact. Educated patient with plan of care and medication regimen with good verbal understanding. All safety measures in place,call light within reach. Will continues to monitor.
[2018-06-17 08:00] VITALS: BP 137/88
--- NOTE | 2018-06-17 08:00 | NUR ---
COWS/CIWA ASSESSMENT Patient appears restless, sad facial expressions and continues to exhibit s/s of withdrawal such as bilateral hand tremors, sweats, chills, stuffy nose, difficulty sitting still, yawning, anxiety, restless, agitation, light headed, CIWA score -13, and COWS score -6. Will cont to monitor.
[2018-06-17] MEDS: FOLIC ACID 1 MG TABLET PO SCH (08:19)
[2018-06-17] MEDS: THIAMINE HCL 100 MG TABLET PO SCH (08:19)
[2018-06-17] MEDS: DIVALPROEX 500 MG TABLET.DR PO SCH ×2 (08:19→20:45)
[2018-06-17] MEDS: MULTIVITAMINS,THERAPEUTIC TABLET PO SCH (08:19)
[2018-06-17] MEDS: ENSURE WITH FIBER 237 ML LIQUID (CHOCOLATE) PO SCH ×2 (08:20→17:44)
[2018-06-17 12:00] VITALS: BP 128/79
--- NOTE | 2018-06-17 12:00 | NUR ---
COWS/CIWA ASSESSMENT Patient reported medications have been effective in controlling s/s of withdrawal but still having sweats, chills, restlessness, difficulty sitting still, anxiety, agitation, c/o light headed, CIWA score -10, and COWS score -5. Will cont to monitor.
[2018-06-17] MEDS: ACETAMINOPHEN 325 MG TABLET PO PRN ×2 (14:27→20:45)
--- NOTE | 2018-06-17 14:28 | NUR ---
Client was prompted to attend twice daily group therapy sessions.
--- NOTE | 2018-06-17 14:29 | NUR ---
PRN TYLENOL Patient reported bilateral legs pain, PRN Tylenol 650mg PO administered as ordered. Will cont to monitor and reassess the pt. Addendum: 06/17/18 at 1633 by JOHNNIE RAJAN LVN legs pain -04/10.
--- NOTE | 2018-06-17 15:29 | NUR ---
TYLENOL REASSESSMENT Per patient Tylenol was effective pain lower to 2/10.
[2018-06-17 16:00] VITALS: BP 123/78
--- NOTE | 2018-06-17 16:00 | NUR ---
COWS/CIWA ASSESSMENT Patient reported feeling tired and continues to exhibit s/s of withdrawal such as bilateral hand tremors, sweats, chills, difficulty sitting still, anxiety, restless, agitation, light headed, CIWA score -9, and COWS score -4. Will cont to monitor.
--- NOTE | 2018-06-17 17:40 | NUR ---
PRN MOTRIN Patient reported headache 5/10. PRN Motrin 600mg PO given as ordered. Will cont to monitor and reassess.
--- NOTE | 2018-06-17 18:40 | NUR ---
MOTRIN REASSESSMENT Per patient Motrin was effective headache lower to 2/10.
--- NOTE | 2018-06-17 19:04 | NUR ---
END OF SHIFT NOTE Gave report to night nurse, 48 year old male patient admitted for ETOH and [place] withdrawal and completed his Valium and Subutex taper tolerated well. Patient presented with labile facial expression, anxiety, agitation, restless, muscle spasms, headache, light headed, sweats, bilateral hand tremors. Patient was given scheduled medications and PRN Tylenol 650mg PO and Motrin 600mg PO noted to be effective. Patient noted attending groups and activities. Patient set for schedule in the AM. All safety measures in place, call light within reach. Patient endorse to night nurse in stable condition.
--- NOTE | 2018-06-17 19:30 | NUR ---
START OF SHIFT Pt is 48 y/o male admitted on 06/12/18 for ETOH and opiate withdrawal. Pt finished a 5 day Valium taper and a 3 day Subutex taper, tolerated well and is scheduled to be discharged tomorrow. Last CIWA 9 COWS 4. PRN Tylenol and Motrin administered during day shift. Upon assessment Pt presents with anxiety, restlessness, depressed affect, agitated, racing thoughts, slumped posture, unkempt room, body aches, difficulty falling and staying asleep, and headache. Pt also complaints of chronic knee pain bilaterally. Medications due. Safety measures in place. Call light within reach. Will continue to monitor.
[2018-06-17 20:00] VITALS: BP 124/81
--- NOTE | 2018-06-17 20:00 | NUR ---
COWS/CIWA ASSESSMENT COWS 8/CIWA 11. Pt presented with anxiety, restlessness, agitated, racing thoughts, body aches, and headache.
--- NOTE | 2018-06-17 20:45 | NUR ---
PRN TYLENOL ADMINISTRATION Pt complaint of headache and bilateral knee pain 04/10. Safety measures in place. Call light within reach. Will continue to monitor.
[2018-06-17] MEDS: MIRTAZAPINE 15 MG TABLET PO SCH (20:46)
--- NOTE | 2018-06-17 21:45 | NUR ---
PRN TYLENOL REASSESSMENT Pt rated his pain 12/11. Safety measures in place. Call light within reach. Will continue to monitor.
[2018-06-17] MEDS ORDERED: CLON0.1T14 PO (22:18)
[2018-06-17] MEDS ORDERED: PANT40TA2 PO (22:18)
[2018-06-17] MEDS ORDERED: IBUP-1955 PO (22:18)
[2018-06-17] MEDS ORDERED: METH500T6 PO (22:18)
[2018-06-18] MEDS: PANTOPRAZOLE SODIUM 40 MG TABLET.DR PO SCH (06:54)
--- NOTE | 2018-06-18 07:12 | NUR ---
END OF SHIFT Pt is 48 y/o male admitted on 06/12/18 for ETOH and opiate withdrawal. Pt finished a 5 day Valium taper and a 3 day Subutex taper, tolerated well and is scheduled to be discharged today. Pt presented with anxiety, restlessness, depressed affect, agitated, racing thoughts, slumped posture, unkempt room, body aches, difficulty falling and staying asleep, and headache. Pt also complaints of chronic knee pain bilaterally. Scheduled medication and PRN Tylenol administered, effective in S/S of withdrawal AEB COWS 8 CIWA 11 lowered to COWS 7 and CIWA 8. Pt slept 7 hours. Intake 1250 ml, void x 7, stool x 2. Safety measures in place. Call light within reach. Pt's needs have been met. Endorsed to day shift nurse.
--- NOTE | 2018-06-18 07:51 | NUR ---
START OF SHIFT Pt is a 48 y/o m admitted on 06/12/18 for medically supervised etoh and opiate withdrawal. Pt was placed on a 3 day subutex and 5 day valium taper that was completed yesterday. Received pt a/ox4, in room packing clothes for discharge. Pt presents restlessness, anxiety, chronic knee pain. Pt is medically cleared to be discharged today. Last cows 7 and ciwa 8 @0600. Side rails upx2, bed is in low position. Call light within reach. Will continue to monitor.
[2018-06-18 08:00] VITALS: BP 127/83
--- NOTE | 2018-06-18 08:00 | NUR ---
COWS AND CIWA ASSESSMENT COWS 5 AND CIWA 8 @0800. Pt presents restlessness, anxiety, sweating and agitation. Pt states he is anxious about leaving detox and going to treatment.
[2018-06-18] MEDS: MULTIVITAMINS,THERAPEUTIC TABLET PO SCH (08:35)
[2018-06-18] MEDS: FOLIC ACID 1 MG TABLET PO SCH (08:35)
[2018-06-18] MEDS: IBUPROFEN 600 MG TABLET PO PRN (08:35)
[2018-06-18] MEDS: THIAMINE HCL 100 MG TABLET PO SCH (08:35)
[2018-06-18] MEDS: DIVALPROEX 500 MG TABLET.DR PO SCH (08:35)
--- NOTE | 2018-06-18 08:35 | NUR ---
PRN Ibuprofen 600 mg po prn given for headache 4/10 pain. Will monitor and reassess.
[2018-06-18] MEDS: ENSURE WITH FIBER 237 ML LIQUID (CHOCOLATE) PO SCH (09:23)
--- NOTE | 2018-06-18 09:35 | NUR ---
REASSESSMENT Pt has reported ibuprofen was effective in decreasing headache pain to 2/10. Will continue to monitor.
--- NOTE | 2018-06-18 09:35 | NUR ---
DISCHARGE NOTE Pt left the building at 0935 on 06/18/18 and is in stable condition, VS are wnl. Pt left the building with all belongings, prescriptions, and d/c paperwork. Discharge instructions given, and pt verbalized understanding. Last COWS 5 CIWA 8. Pt has been picked up by [employer] transportation and has been taken to [facility].
== END 2018-06-18 09:34 | disposition other institution (70) | DRG 895 ==
LOC: SRC 06-12 00:05
PROVIDERS: ADMIT Family Medicine Addiction Medicine; ATTEND Family Medicine Addiction Medicine
PROC: HZ2ZZZZ Detoxification Services for Substance Abuse Treatment (ICD-10-PCS; principal; 2018-06-12)
PROC: HZ41ZZZ Group Counseling for Substance Abuse Treatment, Behavioral (ICD-10-PCS; 2018-06-12)
DX: F10.230 Alcohol dependence with withdrawal, uncomplicated (principal); K85.20 Alcohol induced acute pancreatitis without necrosis or infection; F31.30 Bipolar disorder, current episode depressed, mild or moderate severity, unspecified; Y90.8 Blood alcohol level of 240 mg/100 ml or more; R73.9 Hyperglycemia, unspecified; G47.00 Insomnia, unspecified; Z59.0 Homelessness; F17.210 Nicotine dependence, cigarettes, uncomplicated; Z79.899 Other long term (current) drug therapy; G89.29 Other chronic pain; M25.461 Effusion, right knee; I10 Essential (primary) hypertension; F41.1 Generalized anxiety disorder; F11.23 Opioid dependence with withdrawal
CPT/HCPCS: 36415; 70030-TC; 80307; 80346; 80361; 83690; 83735; 84443; 85025; 86580; 86592; 86705; 86803; 87340; 87806; G0480; Q0162

== ENCOUNTER 2018-09-07 18:06 | Inpatient (IN) | payer BC, OTHER ==
[~2018-09-07] VITALS: Ht 167.6 cm; Wt 68.0 kg
[~2018-09-07 18:06] MED LIST changes: -DICY20TA28 PO; -DIPH50CA37 PO; +IBUP-1955 PO; +MELO-107 PO; +METH500T6 PO
--- NOTE | 2018-09-08 00:40 | NUR ---
Pre-Admission Note Pt is a 48 year old male seen at intake. Pt appears anxious and restless. Pt has poor eye contact and keeps eyes closed when responding to questions. Upon assessment pt states he is here for ETOH. Upon further assessment, pt has difficulty concentrating and is a poor historian. Pt often responds with. I dont know really, I wish I knew what to say, I cant remember. Pt responds with this statement, then closes eyes again and does not respond further. Vital signs taken, rules of the unit explained such as vital signs Q4H, wasting of controlled substances, kitchen access, and smoking patio privileges. Pt verbalized understanding. Will continue with admission process upon arrival on unit.
[2018-09-08 00:50] VITALS: BP 120/83
--- NOTE | 2018-09-08 00:50 | NUR ---
Admission Note Patient is a 48-year-old male who arrived to the floor at 0049. Pt is admitted for medically supervised withdrawal from ETOH. Pt also reports using heroin, Valium, crystal meth and cannabis. Pt appears to be in a depressed mood, avoidant eye contact, flushed skin, anxious and restless. Upon assessment, Pt appears to be in irritable and agitated. Pt states, I really dont know how to answer the questions. I just dont know. I just know I need to stop drinking During time of assessment, pt presents with a CIWA 16: flushed/clammy skin, increased anxiety, mild nausea, chills, gross tremors, sensitivity to light, irritability/agitation. Pt states he last drank Vodka about an hour ago. But I dont know. Sure, you could say I drank the bottle. Pt is a poor historian and becomes frustrated when further questions are being asked, therefore pt remains silent and does not respond. Pt Substance use is as follows: 1. Vodka 2 pints/daily x 1 month, last intake on 09/08/2018 of 1 pint. Pt reports he has been drinking for 10 years 2. Valium 5mg/daily, for the last 1-2 weeks, last intake on 09/04/2018 of 5mg. Pt reports he was prescribed Valium recently when he was admitted at [facility] in [place], [place]. Upon further, questioning regarding hospitalization, Pt states, I told you lady, I was at [facility] in [place], thats all I remember!. 3. Heroin 1g/intermittently, last intake on 09/04/2018 of 1g for 1-2 weeks. Pt reports he usually does not take Heroin. This was only for one week. 4. Crysal Meth 0.25gm/intermittently, last intake on 09/04/2018 of 0.25g for 1-2 weeks - used for the first time in 20 years. 5. Cannabis 0.5g/daily, last intake on 09/08/2018 of 0.5g. Pt reports he has been smoking cannabis for the past 10 years. As pt states, when he experiences withdrawal, his typical signs and symptoms are: "I get tremors, seizures, irritation/agitation, anxiety and restlessness". Pt reports, I think I had a seizure a couple of days ago, Im not really sure, but yes you could say that I did. Pt reports he has had history of withdrawal induced delirium and blackouts; pt denies withdrawal induced cardiac complications or overdoses. Pt continues to present to be a poor historian and often changes his responses. Pt reports he has [place] a few [place]. [place] [place] [place] 3.[facility] Dec 24-2017 4[facility] June 12-2017 5.[facility], August 29 Upon further assessment, pt become irritated and states, Lady, I dont exactly know you want me to answer, but I dont know any of the answers. In attempt to gather further information, pt stated that he was hospitalized in [place] on August 29, 2018 in a Mental health facility at [facility]. Pt states, It might have been that hospital, or another one, who know really. After discharge from the hospital pt reports he left to go help his friend who lives in [place]. Pt states, I tried to help him, but it was a bad idea, cause I started using too. Pt reported his longest period of sobriety was for "2-3 years in 2011 - 2014". In regards to staying sober, pt states, I dont what to tell you really, I use become it helps me from my emotions. I know that I have to stop. I never do it for myself, but now I have to do it for myself. I got from my , so now I have to do it for myself. In attempt to assess further regarding motivation, pt becomes irritable and states, Lady dont ask me anymore. PMH: Seizure d/t withdrawal. Pt reported his last seizure was a couple of days ago. Pancreatitis May 2018, Osteoarthritis in both knees, Anxiety and depression. Pt denies any 5150s however states, I have checked into mental health facilities voluntarily cause I wanted to. Pt takes Remeron 35mg PO QHS. Pt reports he hasnt take it for a few days. Pt is also prescribed Depakote 500mg, which he used to take every night, however he has not taken it in 2 weeks because my doctor said Im not Bipolar. Pt reports his have a primary care provider is Dr. Sam, who is in [place]. Pt reports he does not know what his plan is after treatment. Vital signs - BP: 120/83, HR: 91, RR: 16, SpO2: 96%, Temp: 98.1. Respirations are even and unlabored. Lung sounds clear. Bowel sounds active x4 quadrants. Last bowel movement 09/08/2018. No abdominal pain reported. Skin is noted to be intact. Pt follows a regular diet at home. NKA. Full Code. Height is 5'6", 150 lbs per standing scale. Patient stated that he smokes about 0.5 -pack of cigarettes daily. Educational material provided regarding treatment plan at [facility]. Educated patient about plan of care including detox, group therapy, individual therapy, and discharge planning. Encouraged patient to be open and honest and verbalized support for patient in his recovery. Will continue to monitor. Addendum: 09/08/18 at 0651 by LEORA WILDER RN [place] [place] [facility] [place] 2018 3.[facility] Dec [id number] 4.[facility] June 122017 5.[facility], August 29. Pt stated he was unsure how long he stayed in [facility]. Pt stated, "I remember being admitted on the . I don't remember when I discharged. I think it was in a week. Or actually it was in 1 or 2 days. I really don't know".
[2018-09-08] MEDS ORDERED: MAG HYDROX/AL HYDROX/SIMETH 30 ML LIQUID UDC PO PRN (01:30)
[2018-09-08] MEDS ORDERED: ACETAMINOPHEN 325 MG TABLET PO PRN (01:30)
[2018-09-08] MEDS ORDERED: LORAZEPAM 1 MG TABLET PO PRN (01:30)
[2018-09-08] MEDS ORDERED: MIRALAX 17 GM POWD.PACK PO PRN (01:30)
[2018-09-08] MEDS ORDERED: DICYCLOMINE HCL 20 MG TABLET PO PRN (01:30)
[2018-09-08] MEDS ORDERED: diphenhydrAMINE 50 MG CAPSULE PO PRN (01:30)
[2018-09-08] MEDS ORDERED: THIAMINE HCL 200 MG/2 ML VIAL IM ONE (01:30)
[2018-09-08] MEDS ORDERED: ONDANSETRON ODT 4 MG TAB.RAPDIS SL PRN (01:30)
[2018-09-08] MEDS ORDERED: MAGNESIUM HYDROXIDE 30 ML LIQUID UDC PO PRN (01:30)
[2018-09-08] MEDS ORDERED: ONDANSETRON 4 MG/2 ML VIAL IM PRN (01:30)
[2018-09-08] MEDS ORDERED: LOPERAMIDE HCL 2 MG CAPSULE PO PRN ×2 (01:30)
[2018-09-08] MEDS: LORAZEPAM 1 MG TABLET PO PRN ×2 (01:34→08:49)
--- NOTE | 2018-09-08 01:34 | NUR ---
PRN Ativan CIWA 16 - flushed/clammy skin, increased anxiety, mild nausea, chills, gross tremors, sensitivity to light, irritability/agitation. Ativan 2mg PRN administered. will continue to monitor.
[2018-09-08 01:50] LABS: BASOPHILS % (AUTO) 0.6 % (0.0-2.0); EOSINOPHILS % (AUTO) 0.4 % (0.0-7.0); HEMATOCRIT 50.3 % (36.7-47.1); HEMOGLOBIN 17.5 g/dL (12.5-16.3); LYMPHOCYTES # (AUTO) 3.8 K/uL (20.0-40.0); LYMPHOCYTES % (AUTO) 52.1 % (20.5-51.5); MEAN CORPUSCULAR HEMOGLOBIN 33.9 uug (23.8-33.4); MEAN CORPUSCULAR HGB CONC 35 g/dL (32.5-36.3); MEAN CORPUSCULAR VOLUME 97.4 fL (73.0-96.2); MONOCYTES # (AUTO) 0.5 K/uL (2.0-10.0); MONOCYTES % (AUTO) 7.4 % (0.0-11.0); NEUTROPHILS # (AUTO) 2.9 K/uL (1.8-8.9); NEUTROPHILS % (AUTO) 39.5 % (38.5-71.5); PLATELET COUNT (AUTO) 252 K/uL (152-348); RED BLOOD CELL COUNT(AUTO) 5.17 MIL/uL (4.06-5.63); WHITE BLOOD COUNT (AUTO) 7.3 K/uL (3.6-10.2)
[2018-09-08 01:51] LABS: BILIRUBIN,TOTAL 0.3 mg/dL (0.2-1.0); CREATININE 1.2 mg/dL (0.6-1.3); MAGNESIUM 2.5 mg/dL (1.8-2.4); POTASSIUM 3.5 mmol/L (3.5-5.1); TOTAL PROTEIN, SERUM 9.1 g/dL (6.4-8.2)
[2018-09-08 02:26] LABS: *AMPHETAMINE, URINE POSITIVE (NEGATIVE); *BARBITURATE, URINE NEGATIVE (NEGATIVE); *CANNABINOID, URINE POSITIVE (NEGATIVE); *COCCAINE, URINE NEGATIVE (NEGATIVE); *OPIATE, URINE NEGATIVE (NEGATIVE); *PHENCYCLIDINE SCREEN,URINE NEGATIVE (NEGATIVE)
--- NOTE | 2018-09-08 02:34 | NUR ---
PRN Reassessment Upon reassessment, pt is noted to be sleeping, respirations even/unlabored. Safety measures in place, will continue to monitor.
[2018-09-08 02:57] LABS: THYROID STIMULATING HORMONE 2.715 mIU/mL (0.358-3.740)
[2018-09-08 04:00] VITALS: BP 122/74
--- NOTE | 2018-09-08 07:20 | NUR ---
End of Shift Pt is a 48 year old male admitted for ETOH withdrawal, PRN Ativan available for signs and symptoms of withdrawal. Pt also reported using Valium, heroin, crystal meth and cannabis intermittently. During shift, pt presented with a CIWA 16: flushed/clammy skin, increased anxiety, mild nausea, chills, gross tremors, sensitivity to light, irritability/agitation. Ativan 2mg PRN administered. Pt slept for 4 hours, intake of 500ml PO and voids x1. Safety measures in place, endorsed to day shift nurse.
[2018-09-08 08:00] VITALS: BP 104/75
--- NOTE | 2018-09-08 08:00 | NUR ---
Start of Shift / CIWA 23 Received 48 y/o M admitted today @0050 today 09/08/18 for medically supervised ETOH, benzo and heroin withdrawal. Pt was given ativan 2 mg po prn for CIWA 16 @0130 and pt slept for 4 hrs. Upon assessment, pt is flushed, has an avoidant eye contact, anxious mood, and flat affect. Pt presents elevated anxiety, agitation, restlessness, gross tremors, headache 5/10, sneezing, and pt verbalized that he is having auditory hallucinations; pt states, "I keep hearing the person's voie, who did me wrong in [place], keep talking." Encouraged pt to increase fluids as tolerated. Educated pt on s/s to report, med regimen and tx plan. Side rails upx2, bed in low position, call light within reach. Safety measures in place. Will continue to monitor.
[2018-09-08] MEDS: THIAMINE HCL 100 MG TABLET PO SCH (08:48)
[2018-09-08] MEDS: FOLIC ACID 1 MG TABLET PO SCH (08:48)
[2018-09-08] MEDS: MULTIVITAMINS,THERAPEUTIC TABLET PO SCH (08:48)
[2018-09-08] MEDS: IBUPROFEN 600 MG TABLET PO PRN (08:53)
--- NOTE | 2018-09-08 09:21 | NUR ---
PRN Ativan 2mg po prn; CIWA 23. Upon assessment, pt is flushed, has an avoidant eye contact, anxious mood, and flat affect. Pt presents elevated anxiety, agitation, restlessness, gross tremors, headache 5/10, sneezing, and pt verbalized that he is having auditory hallucinations; pt states, "I keep hearing the person's voie, who did me wrong in [place], keep talking." Safety measures in place. Will continue to monitor.
[2018-09-08] MEDS ORDERED: 3 DAY TAPER OF VALIUM-SERENITY PROTOCOL PO PRN (09:30)
[2018-09-08] MEDS ORDERED: DIAZEPAM 5 MG TABLET PO PRN (09:30)
[2018-09-08] MEDS ORDERED: DIAZEPAM 10 MG TABLET PO PRN ×2 (09:30)
[2018-09-08] MEDS ORDERED: QUETIAPINE FUMARATE 100 MG TABLET PO PRN (09:45)
--- NOTE | 2018-09-08 10:21 | NUR ---
Reassessment Pt is in bed with eyes closed, appears to be sleeping. Respirations even and unlabored. Safety measures in place.
[2018-09-08] MEDS ORDERED: CLONIDINE HCL 0.1 MG TABLET PO PRN (11:45)
[2018-09-08] MEDS ORDERED: IBUPROFEN 600 MG TABLET PO PRN (11:45)
[2018-09-08 12:11] VITALS: BP 127/68
--- NOTE | 2018-09-08 12:47 | NUR ---
CIWA 23 / PRN Pt continues to be flushed, has an avoidant eye contact, depressive and anxious mood, and flat affect. Pt c/o increased anxiety and agitation, poor appetite, presents restlessness, gross tremors, headache, sneezing, fidgety, and moving around alot. Pt verbalized that he is still having auditory hallucinations. Valium 20 mg po prn will be given. Safety measures in place. Will continue to monitor.
--- NOTE | 2018-09-08 13:47 | NUR ---
Reassessment Pt verbalized he was unable to eat due to poor appetite and he is still anxious and is "not feeling good." Encouraged pt to verbalize feelings and to use non-pharmacological methods. Safety measures in place. Will continue to monitor.
[2018-09-08 16:00] VITALS: BP 116/74
--- NOTE | 2018-09-08 16:30 | NUR ---
CIWA 18 Pt has been isolative in room, is flushed, has a depressive and anxious mood, and flat affect. Pt c/o increased anxiety and agitation, poor appetite, presents restlessness, gross tremors, headache, sneezing, is fidgety. Pt verbalized auditiory hallucinations decreased. Safety measures in place. Will continue to monitor.
--- NOTE | 2018-09-08 19:35 | NUR ---
End Of Shift Last CIWA 18. Pt has been isolative in room throughout shift. Pt came out to go to the patio or shower. Pt verbalized auditory hallucinations has decreased. Pat has been placed on a 3 day valium taper starting today. Pt was given ibuprofen 600 mg po prn, ativan 2 mg po prn, valium 20 mg po prn during shift. Safety measures in place.
--- NOTE | 2018-09-08 19:52 | NUR ---
START OF SHIFT NOTE Rcvd report from outgoing nurse. Pt is a 48 y/o male A/O to person, place, time, and purpose. Pt was admitted for medically supervised withdrawal from ETOH. Pt is on day 1 of 3 day Valium taper. Pt has been presenting w/ tremors, flushing, sweats, body aches, headaches, diarrhea, anxiety, agitation, blunt affect, and depressed and withdrawn mood. PRN Ativan, Valium, and Motrin were given and noted effective by outgoing nurse. Last CIWA 21 @ 1600. Call light is within reach. Pt will continue to be monitored and needs m.
[2018-09-08 20:08] VITALS: BP 124/85
--- NOTE | 2018-09-08 20:10 | NUR ---
CIWA ASSESSMENT CIWA 21. Pt has been presenting w/ tremors, flushing, sweats, body aches, headaches, diarrhea, anxiety, agitation, blunt affect, and depressed and withdrawn mood. V/S: T:98.2, P:102, RR:20, SPO2:98, BP:124/85.
[2018-09-08] MEDS: MIRTAZAPINE 15 MG TABLET PO SCH (20:13)
[2018-09-08] MEDS: CLONIDINE HCL 0.1 MG TABLET PO PRN (20:14)
--- NOTE | 2018-09-08 20:14 | NUR ---
PRN CLONIDINE ADMINISTRATION Clonidine 0.1mg given for anxiety and CIWA of 21. Will reassess pt in 1 hr.
[2018-09-08] MEDS ORDERED: DIAZEPAM 10 MG TABLET PO SCH (21:00)
--- NOTE | 2018-09-08 21:14 | NUR ---
PRN CLONIDINE REASSESSMENT Pt is in bed w/ his eyes closed. Pt's respirations are unlabored and even.
--- NOTE | 2018-09-09 00:05 | NUR ---
CIWA DEFERRED. V/S REFUSED Pt is in bed w/ his eyes closed. Pt's respirations are unlabored and even.
--- NOTE | 2018-09-09 04:10 | NUR ---
CIWA DEFERRED. V/S REFUSED Pt is in bed w/ his eyes closed. pt's respirations are unlabored and even.
--- NOTE | 2018-09-09 05:30 | NUR ---
CIWA ASSESSMENT CIWA 19. Pt continues presenting w/ tremors, flushing, sweats, body aches, headaches, diarrhea, anxiety, agitation, blunt affect, and depressed and withdrawn mood. Pt states they are going for a smoke. Pt refused V/S. Will monitor pt when he comes back.
[2018-09-09] MEDS: PANTOPRAZOLE SODIUM 40 MG TABLET.DR PO SCH (06:50)
--- NOTE | 2018-09-09 07:12 | NUR ---
END OF SHIFT NOTE Endorsed pt to the oncoming nurse. Pt is a 48 y/o male A/O to person, place, time, and purpose. Pt was admitted for medically supervised withdrawal from ETOH, Benzodiazepines, and Opiates. Pt completed day 1 of 3 day Valium taper. Pt continues presenting w/ tremors, flushing, sweats, body aches, headaches, diarrhea, anxiety, agitation, blunt affect, and depressed and withdrawn mood. Pt denies any S/I or H/I. PRN Clonidine 0.1mg was given and noted effective. Pts fluid intake was 1000ml and he slept for 6hrs. Last CIWA 21 @ [id number]. Call light is within reach.
[2018-09-09 08:03] VITALS: BP 100/61
--- NOTE | 2018-09-09 08:17 | NUR ---
START OF SHIFT: Received Pt A/O X4. He presents with anxious mood and congruent affect. He is tremulous and reports feeling shaky,anxious,irritable ,restless and sweaty. He also reports weakness and fatigue. Modified Valium taper in progress to manage s/s of w/d. CIWA 18. made aware. Encouraged increased fluids. Encouraged group attendance to improve coping skills and prevent relapse. Will continue to monitor and offer support.
[2018-09-09] MEDS ORDERED: TUBERCULIN,PURIF.PROT.DERIV. 5 TU/0.1 ML TEST ID ONE (09:00)
[2018-09-09] MEDS: DIAZEPAM 5 MG TABLET PO SCH ×3 (09:00→21:20)
[2018-09-09] MEDS: MULTIVITAMINS,THERAPEUTIC TABLET PO SCH (09:00)
[2018-09-09] MEDS: THIAMINE HCL 100 MG TABLET PO SCH (09:00)
[2018-09-09] MEDS: FOLIC ACID 1 MG TABLET PO SCH (09:00)
[2018-09-09 10:07] LABS: HEPATITIS B SURFACE AG Negative (Negative)
[2018-09-09 12:00] VITALS: BP 117/79
--- NOTE | 2018-09-09 13:20 | NUR ---
GODFREY 13 at noon. He reports anxiety,restlessness,sweats,agitation and fatigue. He also reports diarrhea x 3 . PRN Imodium administered as ordered. Will monitor effectiveness.
--- NOTE | 2018-09-09 14:20 | NUR ---
PRN Imodium effective. He states he no longer has diarrhea.
[2018-09-09 14:40] LABS: BASOPHILS % (AUTO) 0.6 % (0.0-2.0); EOSINOPHILS % (AUTO) 0.6 % (0.0-7.0); HEMATOCRIT 43.7 % (36.7-47.1); HEMOGLOBIN 15.4 g/dL (12.5-16.3); LYMPHOCYTES # (AUTO) 1.1 K/uL (20.0-40.0); MEAN CORPUSCULAR HEMOGLOBIN 33.9 uug (23.8-33.4); MEAN CORPUSCULAR HGB CONC 35 g/dL (32.5-36.3); MEAN CORPUSCULAR VOLUME 96.1 fL (73.0-96.2); MONOCYTES # (AUTO) 0.4 K/uL (2.0-10.0); MONOCYTES % (AUTO) 8.9 % (0.0-11.0); NEUTROPHILS # (AUTO) 2.9 K/uL (1.8-8.9); NEUTROPHILS % (AUTO) 64.9 % (38.5-71.5); PLATELET COUNT (AUTO) 203 K/uL (152-348); RED BLOOD CELL COUNT(AUTO) 4.55 MIL/uL (4.06-5.63); WHITE BLOOD COUNT (AUTO) 4.4 K/uL (3.6-10.2)
[2018-09-09 14:53] LABS: BILIRUBIN,TOTAL 0.5 mg/dL (0.2-1.0); CREATININE 1.2 mg/dL (0.6-1.3); POTASSIUM 4.3 mmol/L (3.5-5.1); TOTAL PROTEIN, SERUM 7.7 g/dL (6.4-8.2)
--- NOTE | 2018-09-09 15:23 | NUR ---
Therapist prompted client to attend all group therapy sessions.
[2018-09-09 16:00] VITALS: BP 119/80
--- NOTE | 2018-09-09 19:17 | NUR ---
END OF SHIFT: Pt continues on modified Valium taper to manage s/s of w/d which include anxiety,sweating,restlessness,diarrhea,restlessness and fatigue. Last CIWA 13. He isolated in room most of shift. He did attend an afternoon group. He was compliant with increased fluids. PPD planted to [place] FA. Will pass shift report to oncoming night nurse.
--- NOTE | 2018-09-09 19:30 | NUR ---
START OF SHIFT Received 48 year old male patient admitted on 09/08/18 for ETOH, Benzodiazepine, and Opiate withdrawal. Pt is alert and oriented x4. Pt noted to be odorous, disheveled, anxious, irritable, agitated and complains of headache 06/10. Pt is receiving a 3 day Valium taper and is tolerating well. Per endorsement, pt received PRN Imodium for diarrhea. Last CIWA:13 at 1600. Breathing is even and unlabored, safety measures in place. Will monitor.
--- NOTE | 2018-09-09 20:00 | NUR ---
CIWA Pt complains of anxiety, headache, restlessness, agitation and observed to be irritable. CIWA:11 prior to administration of 2100 medications. Will monitor.
[2018-09-09 20:10] VITALS: BP 115/78
[2018-09-09] MEDS: IBUPROFEN 600 MG TABLET PO PRN (20:15)
--- NOTE | 2018-09-09 20:15 | NUR ---
PRN MOTRIN Pt complains of headache 06/10. PRN Motrin administered as ordered. Safety measures in place. Will monitor effectiveness.
--- NOTE | 2018-09-09 21:15 | NUR ---
PRN MOTRIN REASSESSMENT PRN medication effective. Pt states " I feel so much better" and reports headache decreased to 5/10. Breathing even and unlabored, safety measures in place. Will monitor .
[2018-09-09] MEDS: MIRTAZAPINE 15 MG TABLET PO SCH (21:20)
--- NOTE | 2018-09-10 | NUR ---
VITALS REFUSED, CIWA DEFERRED 0000 vitals refused. CIWA deferred d/t pt lying in bed with eyes closed and is noted to be asleep. Breathing is even and unlabored,safety measures in place. Will continue to monitor.
--- NOTE | 2018-09-10 03:30 | NUR ---
CIWA Pt complains of anxiety, agitation, irritability and restlessness. Pt also reported having night terrors. CIWA:13. Will continue to monitor.
--- NOTE | 2018-09-10 03:32 | NUR ---
PRN CLONIDINE Pt complains of anxiety, agitation, and restlessness. PRN Clonidine administered as ordered. Safety measures in place. Will continue to monitor.
[2018-09-10] MEDS: CLONIDINE HCL 0.1 MG TABLET PO PRN (03:33)
--- NOTE | 2018-09-10 04:32 | NUR ---
PRN CLONIDINE REASSESSMENT PRN medication effective. Pt is lying in bed with eyes closed noted to be asleep. Breathing is even and unlabored, safety measures in place. Will continue to monitor.
[2018-09-10] MEDS: PANTOPRAZOLE SODIUM 40 MG TABLET.DR PO SCH (06:58)
--- NOTE | 2018-09-10 07:10 | NUR ---
END OF SHIFT Pt is a 48 year old male patient admitted on 09/08/18 for ETOH, Benzodiazepine, and Opiate withdrawal. He remains alert and oriented x4. He was noted to be anxious, irritable, agitated and complained of headache 7/10 during the shift. He continues on a 3 day Valium taper and is tolerating well. At 2014 he received PRN Motrin and at 329 he received PRN Clonidine. He slept a total of 7 hrs, Intake: 855mL, Void: x6, BM:x2. Last CIWA: 13 at 0330. Breathing is even and unlabored, safety measures in place. Will endorse to AM shift.
[2018-09-10 08:11] VITALS: BP 100/63
--- NOTE | 2018-09-10 08:15 | NUR ---
START OF SHIFT: Received Pt A/O X4. He presents with anxious mood and congruent affect. He is tremulous and reports feeling anxious,irritable restless and sweaty. He also reports fatigue. Modified Valium taper in progress to manage s/s of w/d. CIWA 9. Encouraged increased fluids. Encouraged group attendance to improve coping skills and prevent relapse. Will continue to monitor and offer support.
[2018-09-10] MEDS: THIAMINE HCL 100 MG TABLET PO SCH (08:37)
[2018-09-10] MEDS: FOLIC ACID 1 MG TABLET PO SCH (08:37)
[2018-09-10] MEDS: MULTIVITAMINS,THERAPEUTIC TABLET PO SCH (08:38)
[2018-09-10] MEDS: DIAZEPAM 5 MG TABLET PO SCH ×2 (08:38→20:47)
[2018-09-10 10:38] LABS: BASOPHILS % (AUTO) 1.1 % (0.0-2.0); EOSINOPHILS % (AUTO) 1.3 % (0.0-7.0); HEMATOCRIT 39.7 % (36.7-47.1); HEMOGLOBIN 14.1 g/dL (12.5-16.3); LYMPHOCYTES # (AUTO) 1.2 K/uL (20.0-40.0); MEAN CORPUSCULAR HGB CONC 36 g/dL (32.5-36.3); MEAN CORPUSCULAR VOLUME 95.9 fL (73.0-96.2); MONOCYTES # (AUTO) 0.5 K/uL (2.0-10.0); MONOCYTES % (AUTO) 12.1 % (0.0-11.0); NEUTROPHILS % (AUTO) 52.5 % (38.5-71.5); PLATELET COUNT (AUTO) 188 K/uL (152-348); RED BLOOD CELL COUNT(AUTO) 4.15 MIL/uL (4.06-5.63); WHITE BLOOD COUNT (AUTO) 3.7 K/uL (3.6-10.2)
[2018-09-10 10:58] LABS: BILIRUBIN,TOTAL 0.3 mg/dL (0.2-1.0); CREATININE 1.1 mg/dL (0.6-1.3); POTASSIUM 4.3 mmol/L (3.5-5.1); TOTAL PROTEIN, SERUM 6.5 g/dL (6.4-8.2)
[2018-09-10 12:00] VITALS: BP 108/71
--- NOTE | 2018-09-10 12:18 | NUR ---
CIWA 9. He reports anxiety,restlessness,sweats and irritability.
[2018-09-10 16:00] VITALS: BP 122/91
--- NOTE | 2018-09-10 16:34 | NUR ---
Therapist prompted client to attend group therapy sessions.
--- NOTE | 2018-09-10 18:37 | NUR ---
END OF SHIFT: Pt continues on modified Valium taper to manage s/s of w/d which include anxiety,restlessness and irritability. Last CIWA 8. He isolated in room most of shift. He attended afternoon group. He was compliant with increased fluids and medications. No PRNS given. He states detox meds are effective. Will pass shift report to oncoming night nurse.
--- NOTE | 2018-09-10 19:30 | NUR ---
Start of Shift Patient Received. Per endorsement, patient continues on a modified 3 day Valium taper. He is noted to be emotionally labile. No PRN medications administered. Last noted CIWA 0. He is noted to be compliant with group and social activities. Upon rounds patient is able to engage in conversation with good eye contact. No significant signs and symptoms of withdrawal verbalized. He is able to verbalize that medication has been effective in minimizing signs and symptoms of withdrawal. All needs attended to promptly. Will continue plan of care as ordered.
[2018-09-10 20:38] VITALS: BP 118/90
[2018-09-10] MEDS: IBUPROFEN 600 MG TABLET PO PRN (20:47)
[2018-09-10] MEDS: MIRTAZAPINE 15 MG TABLET PO SCH (20:47)
--- NOTE | 2018-09-10 20:50 | NUR ---
PRN Mediation Administration Patient is noted verbalizing increased pain due to headache. PRN Motrin administered with routine medications. Patient is also noted verbalizing wanting to leave against medical advice tomorrow 09/11/18 morning. Educated patient of risks and encouraged patient to discuss thoughts and feelings with MD and administration. patient verbalized understanding. He is also noted refusing vitals and states "I wake up every night anyways. Might as well let me sleep until I wake up." Educated patient of risks and he verbalized understanding. Will continue to monitor.
--- NOTE | 2018-09-10 21:44 | NUR ---
PRN Medication Reassessment Patient is noted in bed with lights off, awake and watching TV. patient is noted to verbalize "my headache is slowly going away. Im just waiting for the game to finish then ill go to sleep." PRN Motrin noted to be effective. Will continue to monitor.
--- NOTE | 2018-09-11 00:30 | NUR ---
Vitals Patient is noted in bed with eyes closed. Breathing even and non labored. No signs of facial grimacing or restlessness. Vitals refused. CIWA not able to be as per order. Will continue to monitor.
--- NOTE | 2018-09-11 04:31 | NUR ---
Vitals and CIWA Patient is noted in bed with eyes closed. Breathing even and non labored. No signs of restlessness or discomfort noted. Vitals refused. CIWA not able to be completed as per order. Will continue to monitor.
[2018-09-11] MEDS: PANTOPRAZOLE SODIUM 40 MG TABLET.DR PO SCH (06:27)
--- NOTE | 2018-09-11 07:15 | NUR ---
End of Shift Patient is in bed awake, alert and verbally responsive. Breathing even and non labored. No signs of restlessness or discomfort noted. Patient continues on a modified 3 day Valium taper. He is noted to be emotionally labile and high risk for AMA. Patient received PRN Motrin with medication noted to be effective. Last noted CIWA 14. All needs attended to promptly. Will endorse to continue plan of care as ordered.
--- NOTE | 2018-09-11 08:00 | NUR ---
END OF SHIFT Patient endorsement report received from shift boss nurse, all pertinent information was discussed. patient with admitting Dx: etoh bzo withdrawal. Patient completed 3 day Valium taper as ordered, received last scheduled dose on 09/10/18 at 2100 as per Md orders, patient continues under close observation. Will monitor closely throughout shift. As per shift boss patient with last CIWA score of: 14, received PRN: Motrin. and slept for 8 hours. Safety measures in place. educated regarding plan of care for the day and medication regimen with good verbal understanding, will cont to monitor closely. safety measure in place.
[2018-09-11 08:14] VITALS: BP 120/74
[2018-09-11] MEDS: MULTIVITAMINS,THERAPEUTIC TABLET PO SCH (08:46)
[2018-09-11] MEDS: THIAMINE HCL 100 MG TABLET PO SCH (08:46)
[2018-09-11] MEDS: FOLIC ACID 1 MG TABLET PO SCH (08:46)
--- NOTE | 2018-09-11 09:10 | NUR ---
CIWA ASSESSMENT Was noted exhibiting the following s/sx of withdrawal: anxiety, agitation, fine tremors, barely sweating, and emotional volatility, patient with current CIWA score of: 7. Addendum: 09/11/18 at 1754 by LIEN NEWELL LVN clarification of CIWA score: 8.
[2018-09-11 13:12] VITALS: BP 138/77
--- NOTE | 2018-09-11 13:20 | NUR ---
CIWA ASSESSMENT Was noted exhibiting the following s/sx of withdrawal: anxiety, agitation, fine tremors,, and emotional volatility, patient with current CIWA score of: 7.
[2018-09-11 16:57] VITALS: BP 118/88
--- NOTE | 2018-09-11 17:54 | NUR ---
CIWA ASSESSMENT Continues to exhibit the following s/sx of withdrawal: anxiety, agitation, fine tremors,, and emotional volatility, patient with current CIWA score of: 7. will continue to monitor.
--- NOTE | 2018-09-11 19:00 | NUR ---
END OF SHIFT Patient continues under close observation, is alert and oriented x4, Patient completed 3 day Valium taper as ordered, received last dose of Valium during third shift lieutenant on 09/10/2018. Patient is scheduled to be discharged tomorrow morning, noted self motivated towards sobriety. Patient received no PRN medications during shift. Was noted exhibiting the following s/sx of withdrawal: anxiety, agitation, fine tremors, barely sweating, and emotional volatility, patient with last CIWA score of: 7. All scheduled medications were administered as ordered. Patient was noted with flat affect, and avoidant eye contact, noted with anxious mood. Encouraged utilization of non pharmacological interventions. Encouraged patient to increase PO fluid intake as tolerated. Encouraged to attend group therapies/sessions to learn new coping skills to prevent relapse. Denies SI/HI. Safety measures are in place. Call light kept with in reach, safety measures are in place. Patient endorsed to third shift lieutenant nurse, all pertinent information was discussed.
--- NOTE | 2018-09-11 19:30 | NUR ---
Start of Shift Patient Received. Patient has completed a 3 day Valium taper. He is noted to be emotionally labile and was noted to be high risk for AMA. Patient is set for discharge tomorrow 09/12/18 morning. No PRN medications administered. Last noted CIWA 7. He is noted to be compliant with group and social activities. Upon rounds patient is noted in the activities room participating in a group meeting. All needs attended to promptly. Will continue plan of care as ordered.
[2018-09-11 20:30] VITALS: BP 125/91
[2018-09-11] MEDS: IBUPROFEN 600 MG TABLET PO PRN (21:49)
[2018-09-11] MEDS: MIRTAZAPINE 15 MG TABLET PO SCH (21:49)
[2018-09-11] MEDS: CLONIDINE HCL 0.1 MG TABLET PO PRN (21:49)
--- NOTE | 2018-09-11 21:50 | NUR ---
PRN Medication administration Patient is noted verbalizing inability of falling asleep due to increased anxiety, agitation, and pain due to headache. PRN Motrin and Clonidine administered with routine medication. Will continue to monitor.
[2018-09-11] MEDS ORDERED: MIRTAZAPINE 15 MG TABLET ONE (22:00)
--- NOTE | 2018-09-11 22:50 | NUR ---
PRN Medication Reassessment Patient is noted in bed with eyes closed. Breathing even and non labored. No signs of restlessness or discomfort noted. PRN Clonidine and Motrin noted to be effective. Will continue to monitor.
--- NOTE | 2018-09-12 00:22 | NUR ---
CIWA Assessment Patient is noted in bed with eyes closed. Breathing even and non labored. patient refused vitals. CIWA not able to be completed as per order. Will continue to monitor.
--- NOTE | 2018-09-12 04:15 | NUR ---
CIWA Assessment Patient is noted in bed with eyes closed. Breathing even and non labored. No signs of restlessness or discomfort noted. Patient noted to refuse vitals. CIWA not able to be complete as per order. Will continue to monitor.
[2018-09-12] MEDS: PANTOPRAZOLE SODIUM 40 MG TABLET.DR PO SCH (06:46)
--- NOTE | 2018-09-12 07:07 | NUR ---
End of Shift Patient is noted in bed with eyes closed. Breathing even and non labored. Patient has completed a 3 day Valium taper with current orders to discharge this morning. Patient received PRN Clonidine and Motrin with medication noted to be effective. Last noted CIWA 7. He was noted to sleep a total of 7 hours. All needs attended to promptly. Will endorse to continue plan of care as ordered.
--- NOTE | 2018-09-12 08:02 | NUR ---
BEGINNING OF SHIFT Patient received awake, alert and oriented x4, educated regarding plan of care for the day and medication regimen, patient is scheduled to be discharged this morning, will educate regarding all discharge instructions. Patient endorsement report received from appeals writer nurse, all pertinent information was discussed. patient with admitting Dx: etoh/bzo withdrawal. Patient completed 3 day Valium taper as ordered. patient continues under close observation. Will monitor closely throughout shift. As per appeals writer patient with last CIWA score of: 7, received PRN: Motrin and clonidine. and slept for 7 hours. Safety measures in place. educated regarding plan of care for the day and medication regimen with good verbal understanding, will cont to monitor closely. safety measure in place.
[2018-09-12 08:18] VITALS: BP 148/79
[2018-09-12] MEDS: FOLIC ACID 1 MG TABLET PO SCH (08:36)
[2018-09-12] MEDS: MULTIVITAMINS,THERAPEUTIC TABLET PO SCH (08:36)
[2018-09-12] MEDS: THIAMINE HCL 100 MG TABLET PO SCH (08:36)
--- NOTE | 2018-09-12 09:55 | NUR ---
DISCHARGE Patient discharge off the unit at 0950, prior to discharge patient was provided with education and teaching regarding all discharge instructions with good verbal understanding. Patient noted self motivated towards sobriety, discharged to able to change. Patient with last CIWA score of: 6. Vital signs WNL. All scheduled due medications were administered as ordered.Patients prescriptions and discharge instructions were placed in patients personal duffel bag. Patient off the unit at 0950.
== END 2018-09-12 09:50 | disposition other institution (70) | DRG 895 ==
LOC: SRC 09-08 00:01
PROVIDERS: ADMIT Family Medicine Addiction Medicine; ATTEND Family Medicine Addiction Medicine
PROC: HZ2ZZZZ Detoxification Services for Substance Abuse Treatment (ICD-10-PCS; principal; 2018-09-08)
PROC: HZ41ZZZ Group Counseling for Substance Abuse Treatment, Behavioral (ICD-10-PCS; 2018-09-10)
DX: F10.232 Alcohol dependence with withdrawal with perceptual disturbance (principal); F31.32 Bipolar disorder, current episode depressed, moderate; F10.220 Alcohol dependence with intoxication, uncomplicated; F13.230 Sedative, hypnotic or anxiolytic dependence with withdrawal, uncomplicated; Y90.8 Blood alcohol level of 240 mg/100 ml or more; F11.10 Opioid abuse, uncomplicated; F15.21 Other stimulant dependence, in remission; Z59.0 Homelessness; F17.210 Nicotine dependence, cigarettes, uncomplicated; F41.0 Panic disorder [episodic paroxysmal anxiety]; E83.41 Hypermagnesemia; R73.9 Hyperglycemia, unspecified; F12.10 Cannabis abuse, uncomplicated
CPT/HCPCS: 36415; 70030-TC; 80307; 80324; 80346; 80349; 83690; 83735; 84443; 85025; 86580; 86592; 86705; 86803; 87340; 87806; A4663; G0480

== ENCOUNTER 2023-01-24 05:57 | Inpatient (IN) | payer BC, OTHER ==
[~2023-01-24] VITALS: Ht 170.2 cm; Wt 74.9 kg
[~2023-01-24 05:57] MED LIST changes: -DIVA500T2 PO; -IBUP-1955 PO; +METH-806 PO; -METH500T6 PO; +MIRT-119 PO; -MIRT30TA PO
[2023-01-24] MEDS ORDERED: PANTOPRAZOLE SODIUM IV 40 MG in IV DEXTROSE 5% 100 ML IV ONE (06:15)
[2023-01-24] MEDS ORDERED: IV NORMAL SALINE 1000 ML BAG IV ONE ×2 (06:15→08:00)
[2023-01-24] MEDS ORDERED: ONDANSETRON 4 MG/2 ML VIAL IV ONE ×2 (06:15→07:45)
--- NOTE | 2023-01-24 06:15 | NUR ---
Patient BIB [facility] from home for c/o N/V for 1 day and cough for 3 days. Patient selectively answering questions.
[2023-01-24] MEDS ORDERED: PANTOPRAZOLE SODIUM 40 MG VIAL ONE ×2 (06:41→08:41)
[2023-01-24] MEDS ORDERED: ONDANSETRON 4 MG/2 ML VIAL ONE ×3 (06:41→10:26)
[2023-01-24] MEDS ORDERED: OMEP20CA15 PO (06:42)
--- NOTE | 2023-01-24 06:59 | NUR ---
Back from CT
[2023-01-24 07:27] LABS: MEAN CORPUSCULAR HEMOGLOBIN 32.5 uug (23.8-33.4); MEAN CORPUSCULAR VOLUME 100.6 fL (73.0-96.2); PLATELET COUNT (AUTO) 324 K/uL (152-348)
[2023-01-24 07:54] LABS: CREATININE 2.1 mg/dL (0.6-1.3); POTASSIUM 4.9 mmol/L (3.5-5.1)
[2023-01-24] MEDS ORDERED: MORPHINE SULFATE 4 MG/1 ML DISP.SYRIN IV ONE (08:00)
[2023-01-24] MEDS ORDERED: MORPHINE SULFATE 4 MG/1 ML DISP.SYRIN ONE (08:02)
[2023-01-24 08:04] LABS: BILIRUBIN,DIRECT 0.2 mg/dL (0.0-0.2); BILIRUBIN,TOTAL 0.4 mg/dL (0.2-1.0); TOTAL PROTEIN, SERUM 8.6 g/dL (6.4-8.2)
[2023-01-24 08:21] LABS: ABG BASE EXCESS -21.9 mmol/L; ABG HCO3 7.8 mmol/L; ABG PCO2 30.2 mmHg (35.0-45.0); ABG PH 7.032 (7.350-7.450); ABG PO2 84.9 mmHg (75.0-100.0); ABG SITE RIGHT RADIAL; ABG TOTAL HEMOGLOBIN 16.8 G/dL (13.5-18.0); COHb 0.3 % (0.5-1.5); MetHb 0.4 % (0.0-1.5); O2Hb 91.8 % (94.0-97.0); VENT MODE room air
[2023-01-24] MEDS ORDERED: PIPERACILLIN SODIUM/TAZOBACTAM 3.375 G in IV DEXTROSE 5% 50 ML IV ONE (08:30)
[2023-01-24] MEDS ORDERED: PIPERACILLIN/TAZOBACTAM/D5W 50 ML IV ONE (08:41)
[2023-01-24] MEDS ORDERED: SODIUM BICARBONATE 8.4% 50 MEQ/50 ML VIAL IV ONE (08:45)
[2023-01-24] MEDS ORDERED: IV LACTATED RINGERS SOLUTION 1,000 ML IV ONE (08:45)
[2023-01-24] MEDS ORDERED: SODIUM BICARBONATE 8.4% 50 MEQ/50 ML DISP.SYRIN IV ONE (08:56)
[2023-01-24] MEDS ORDERED: PANTOPRAZOLE SODIUM 40 MG VIAL IV ONE (09:00)
[2023-01-24] MEDS ORDERED: LORAZEPAM 2 MG/1 ML VIAL ONE (09:07)
[2023-01-24] MEDS ORDERED: LORAZEPAM 2 MG/1 ML VIAL IV ONE (09:15)
[2023-01-24] MEDS ORDERED: LABETALOL HCL 100 MG/20 ML VIAL IV PRN (09:15)
[2023-01-24] MEDS ORDERED: hydrALAZINE HCL 20 MG/1 ML VIAL IV PRN (09:15)
[2023-01-24] MEDS ORDERED: ACETAMINOPHEN 325 MG TABLET PO PRN (09:15)
[2023-01-24] MEDS ORDERED: ONDANSETRON 4 MG/2 ML VIAL IV PRN (09:15)
[2023-01-24] MEDS ORDERED: MAGNESIUM HYDROXIDE 30 ML LIQUID UDC PO PRN (09:15)
[2023-01-24] MEDS ORDERED: MORPHINE SULFATE 2 MG/1 ML DISP.SYRIN IVP PRN (09:15)
--- NOTE | 2023-01-24 10:30 | NUR ---
Midline RN, placed midline to RUE, pt tolrated well.
--- NOTE | 2023-01-24 10:30 | NUR ---
Emesis x1, Zofran given.
[2023-01-24] MEDS ORDERED: LORAZEPAM 2 MG/1 ML VIAL IV PRN (11:45)
[2023-01-24] MEDS ORDERED: CHLORDIAZEPOXIDE HCL 25 MG CAPSULE PO SCH (11:45)
[2023-01-24 12:19] LABS: VENT MODE, VBG Room Air
[2023-01-24] MEDS: IV D5 1/2 NS 1000 ML 1,000 ML IV SCH ×3 (12:25→21:05)
--- NOTE | 2023-01-24 12:36 | NUR ---
Pt had emesis w/ dark mucosal blood, Dr Rodriguez notified and orders received.
[2023-01-24] MEDS ORDERED: METOCLOPRAMIDE HCL 10 MG/2 ML VIAL ONE (12:40)
[2023-01-24] MEDS ORDERED: METOCLOPRAMIDE HCL 10 MG/2 ML VIAL IV ONE (12:45)
--- NOTE | 2023-01-24 13:30 | NUR ---
Pt states feeling better and no longer has nausea.
--- NOTE | 2023-01-24 13:37 | NUR ---
Dr Horne at the bedside for eval.
[2023-01-24 13:49] LABS: *BILIRUBIN,URIN NEGATIVE (NEGATIVE); *CLARITY,URINE CLEAR (CLEAR); *COLOR,URINE YELLOW (YELLOW); *KETONES,URINE 3+ (NEGATIVE); *UROBILINOGEN,URINE 0.2 E.U./dl (NORMAL); LEUKOCYTE ESTERASE ,URINE NEGATIVE (NEGATIVE); NITRITE, URINE NEGATIVE (NEGATIVE); PH,URINE 5.5 (5.0-8.0); UGLUCOSE NEGATIVE (NEGATIVE)
[2023-01-24 14:06] LABS: *BLOOD, URINE TRACE (NEGATIVE)
[2023-01-24 14:07] LABS: *AMPHETAMINE, URINE NEGATIVE (NEGATIVE); *CANNABINOID, URINE NEGATIVE (NEGATIVE); *COCCAINE, URINE NEGATIVE (NEGATIVE); *PHENCYCLIDINE SCREEN,URINE NEGATIVE (NEGATIVE)
--- NOTE | 2023-01-24 15:12 | NUR ---
Patient is resting comfortably in bed with eyes closed, NAD at this time.
[2023-01-24 15:38] LABS: RBC,URINE 0-3 /HPF (0-3); WBC,URINE NONE SEEN /HPF (0-3)
[2023-01-24 15:39] LABS: BACTERIA,URINE FEW /HPF (NONE SEEN); SQUAMOUS EPITHELIAL CELL,UR FEW /HPF (NONE SEEN)
[2023-01-24] MEDS ORDERED: CHLORDIAZEPOXIDE HCL 25 MG CAPSULE ONE (17:30)
[2023-01-24] MEDS ORDERED: ACETAMINOPHEN 325 MG TABLET ONE (17:30)
[2023-01-24] MEDS ORDERED: DOCUSATE SODIUM 100 MG CAPSULE PO ONE (17:30)
--- NOTE | 2023-01-24 17:35 | NUR ---
PT c/o headache, acetaminophen 650 mg adminstered.
[2023-01-24] MEDS: DOCUSATE SODIUM 100 MG CAPSULE PO SCH (17:36)
[2023-01-24] MEDS: CHLORDIAZEPOXIDE HCL 25 MG CAPSULE PO SCH (17:36)
--- NOTE | 2023-01-24 18:19 | NUR ---
Pt denies headache, Acetaminophen effective.
--- NOTE | 2023-01-24 19:27 | NUR ---
Report given to CCU RNcharu. Pt transfered to CCU 3.
--- NOTE | 2023-01-24 19:40 | NUR ---
Received from ER,1930 patient ambulate to his bed, alert oriented x4. vitals stable , complain of headache and abdominal pain from not eating and drinking vodka the whole week. patient stated. skin intact sinus tachy 108bpm informed MD that patient is at the unit, CCU bed 3 patient said he will talk to his family, not to call them.
[2023-01-24 20:25] LABS: HEMATOCRIT 37.2 % (36.7-47.1); MEAN CORPUSCULAR HEMOGLOBIN 33.3 uug (23.8-33.4); MEAN CORPUSCULAR VOLUME 96.1 fL (73.0-96.2); PLATELET COUNT (AUTO) 158 K/uL (152-348)
[2023-01-24 20:30] VITALS: BP 133/101
[2023-01-24 21:00] VITALS: BP 102/85
[2023-01-24] MEDS: PANTOPRAZOLE SODIUM 40 MG VIAL IV SCH (21:01)
[2023-01-24] MEDS: HEPARIN SODIUM,PORCINE 5,000 UNITS/ML VIAL SQ SCH (21:04)
[2023-01-24 21:14] LABS: BILIRUBIN,TOTAL 1.1 mg/dL (0.2-1.0); CREATININE 1.2 mg/dL (0.6-1.3); POTASSIUM 3.9 mmol/L (3.5-5.1); TOTAL PROTEIN, SERUM 6.3 g/dL (6.4-8.2)
[2023-01-24] MEDS ORDERED: DEXTROSE 50% 50 ML DISP.SYRIN IV PRN (21:45)
[2023-01-24] MEDS ORDERED: INSULIN REGULAR, HUMAN 300 UNIT/3 ML VIAL SQ PRN (21:45)
[2023-01-24 22:00] VITALS: BP 103/78
[2023-01-24 23:00] VITALS: BP 104/68
[2023-01-25] VITALS (14 sets, daily range): BP systolic 99–132; BP diastolic 45–96
[2023-01-25] MEDS: IV D5 1/2 NS 1000 ML 1,000 ML IV SCH (04:55)
[2023-01-25 05:27] LABS: HEMATOCRIT 36.4 % (36.7-47.1); MEAN CORPUSCULAR HEMOGLOBIN 33.2 uug (23.8-33.4); MEAN CORPUSCULAR VOLUME 96.9 fL (73.0-96.2); PLATELET COUNT (AUTO) 162 K/uL (152-348)
[2023-01-25 05:42] LABS: POTASSIUM 3.2 mmol/L (3.5-5.1)
--- NOTE | 2023-01-25 06:09 | NUR ---
Ativan 2 mg given @ 2300 and morphine 2 mg given for generalized pain and headache no complaint of nausea , no signs of distress, vitals and labs are going the right direction. lactic is now 2.3, white blood cells was 28.5 , now 10.5. refused a bed bath in the morning. all orders noted.
--- NOTE | 2023-01-25 06:29 | NUR ---
left a message for MD Avery regarding potassium 3.2, waiting for call back.
--- NOTE | 2023-01-25 07:25 | NUR ---
Received report from outgoing RN, patient is alert, awake in no distress.
[2023-01-25] MEDS ORDERED: BLOOD SUGAR DIAGNOSTIC 1 EACH STRIP VI SCH (07:30)
[2023-01-25] MEDS ORDERED: POTASSIUM CHLORIDE 20 MEQ TAB.PRT.SR PO ONE (09:15)
[2023-01-25] MEDS: PANTOPRAZOLE SODIUM 40 MG VIAL IV SCH ×2 (09:29→20:46)
[2023-01-25] MEDS: CHLORDIAZEPOXIDE HCL 25 MG CAPSULE PO SCH (09:29)
[2023-01-25] MEDS: DOCUSATE SODIUM 100 MG CAPSULE PO SCH ×2 (09:29→17:24)
[2023-01-25] MEDS: HEPARIN SODIUM,PORCINE 5,000 UNITS/ML VIAL SQ SCH ×2 (09:31→20:56)
[2023-01-25] MEDS: NICOTINE 21 MG/24HR PATCH TD SCH (10:22)
--- NOTE | 2023-01-25 11:00 | NUR ---
Patient was seen by Dr Horne and Dr Merritt plan is to D/C IV fluids, taper librium and to downgrade telemetry unit.
[2023-01-25] MEDS ORDERED: CHLORDIAZEPOXIDE HCL 25 MG CAPSULE PO ONE (17:00)
[2023-01-25] MEDS ORDERED: CHLORDIAZEPOXIDE HCL 25 MG CAPSULE PO SCH (17:00)
--- NOTE | 2023-01-25 18:45 | NUR ---
Patient is transferred from CCU bed number 3 to [address] Med Surg TELE as per Dr's order. All personal belongs taken with him. Patient is positive for MRSA Dr Zaman made aware.
[2023-01-25] MEDS ORDERED: BUTALB/ACETAMINOPHEN/CAFFEINE CAPSULE PO PRN (19:15)
[2023-01-25] MEDS ORDERED: QUETIAPINE FUMARATE 200 MG TABLET PO SCH (21:00)
[2023-01-26 04:15] VITALS: BP 113/75
[2023-01-26 06:57] LABS: HEMATOCRIT 35.7 % (36.7-47.1); MEAN CORPUSCULAR HEMOGLOBIN 33.5 uug (23.8-33.4); MEAN CORPUSCULAR VOLUME 95.9 fL (73.0-96.2); PLATELET COUNT (AUTO) 115 K/uL (152-348)
--- NOTE | 2023-01-26 07:00 | NUR ---
Slept well throughout the night, easy to arouse. In no acute distress, denies chest pain. Sinus rhythm on tele HR 71. DAVIDE midline intact and patent. Needs assessed and attended to.
[2023-01-26 07:05] LABS: CREATININE 0.8 mg/dL (0.6-1.3); MAGNESIUM 2.1 mg/dL (1.8-2.4); PHOSPHOROUS 1.8 mg/dL (2.5-4.9); POTASSIUM 3.4 mmol/L (3.5-5.1)
[2023-01-26] MEDS ORDERED: PANTOPRAZOLE SODIUM 40 MG TABLET.DR PO SCH (08:46)
[2023-01-26] MEDS ORDERED: CHLORDIAZEPOXIDE HCL 25 MG CAPSULE PO SCH (09:00)
[2023-01-26] MEDS ORDERED: MUPIROCIN 2% OINT 22 GM TUBE NS SCH (09:00)
[2023-01-26] MEDS: DOCUSATE SODIUM 100 MG CAPSULE PO SCH (09:54)
[2023-01-26] MEDS: NICOTINE 21 MG/24HR PATCH TD SCH (09:55)
[2023-01-26] MEDS: HEPARIN SODIUM,PORCINE 5,000 UNITS/ML VIAL SQ SCH (09:57)
[2023-01-26] MEDS ORDERED: CHLO25CA22 PO (10:25)
[2023-01-26] MEDS ORDERED: OMEP20CA15 PO (10:25)
[2023-01-26] MEDS ORDERED: QUET200T31 PO (10:25)
[2023-01-26] MEDS ORDERED: POTASSIUM PHOSPHATE MM 15 MMOL in IV NORMAL SALINE 250 ML IV ONE (10:30)
--- NOTE | 2023-01-26 11:08 | NUR ---
Patient is discharged home. Discharge instructions given, patient verbalized understanding. Personal belongings taken with patient. Left unit via wheelchair in no distress escort by nursing staff.
== END 2023-01-26 11:05 | disposition home or self-care (01) | DRG 896 ==
LOC: ER 05:59 → TRANSITION 11:00 → CCU 19:06 → TELE3 01-25 18:32
PROVIDERS: ADMIT Internal Medicine; ATTEND Internal Medicine
PROC: 05H533Z Insertion of Infusion Device into Right Subclavian Vein, Percutaneous Approach (ICD-10-PCS; principal; 2023-01-24)
PROC: B546ZZA Ultrasonography of Right Subclavian Vein, Guidance (ICD-10-PCS; 2023-01-24)
DX: F10.129 Alcohol abuse with intoxication, unspecified (principal); N17.0 Acute kidney failure with tubular necrosis; E87.4 Mixed disorder of acid-base balance; D72.829 Elevated white blood cell count, unspecified; Y90.6 Blood alcohol level of 120-199 mg/100 ml; F10.139 Alcohol abuse with withdrawal, unspecified; Z20.822 Contact with and (suspected) exposure to COVID-19
CPT/HCPCS: 36415; 36600; 71045; 83605; 83690; 83735; 84100; 84484; 85025; 87040; 93005; A4663; C9113; G0378; G0480; J1644; J1815; J2060; J2270; J2405; J2543; J2765; J3490; J7040; J7120